=== PATIENT | male | born 1950 | race Caucasian/White ===

== ENCOUNTER 2017-02-06 09:01 | Inpatient (IN) ==
[2017-02-06 09:46] LABS: MANUAL DIFF NEEDED? NO
[2017-02-06 09:48] LABS: BASO% 0.3 % (0.0-0.8); EOS# 0.01 X1000 (0.0-0.7); EOS% 0.1 % (0.0-10.0); HEMATOCRIT 49.3 % (42.0-52.0); HEMOGLOBIN 16.9 g/dL (14.0-18.0); IMM GRAN# 0.05 X1000 (0.0-0.04); IMM GRAN% 0.3 % (0.0-0.5); LYMPH# 2.47 X1000 (1.2-3.4); LYMPH% 16.8 % (20.5-51.1); MCH 31.5 PG (27-31); MCHC 34.3 g/dL (33-37); MONO# 1.03 X1000 (0.11-0.59); MPV 9.5 FL (7.4-10.4); NEUT% 75.5 % (42.2-75.2); PLT 247 X1000 (130-400); RBC 5.36 XMIL (4.7-6.1)
[2017-02-06 10:06] LABS: AGAP 15; ALBUMIN 4.8 g/dL (3.5-5.0); ALKALINE PHOSPHATASE 85 U/L (32-122); BUN 19 mg/dL (8-22); CALCIUM 10.4 mg/dL (8.8-10.2); CHLORIDE 99 mmol/L (98-107); COSMO 277; GOT 23 U/L (10-34); GPT 25 U/L (10-44); POTASSIUM 4.1 mmol/L (3.5-5.1); SODIUM 137 mmol/L (136-145); TCO2 23 mmol/L (25-35); TOTAL BILIRUBIN 0.45 mg/dL (0.20-1.00); TOTAL PROTEIN 8.1 g/dL (6.3-8.3)
--- NOTE | 2017-02-06 10:10 | PROVIDER DOCUMENTATION ---
This chart was entered by Rita Vazquez Scribe, acting as scribe for Duran Sarkar MD. HPI-General Adult - General Chief Complaint: Nausea/Vomiting Stated Complaint: N/V X 1 YEAR Time Seen by Provider: 02/06/17 09:04 Source: patient Allergies/Adverse Reactions: Patient Allergies Allergy/AdvReac Type Severity Reaction Status Date / Time morphine Allergy ANAPHYLAXIS Verified 02/06/17 09:16 Home Medications: Home Medication List Medication Instructions Recorded Confirmed Last Taken Type ATORVAstatin [Lipitor] 40 mg PO DAILY 02/01/17 02/06/17 1 Day Ago History Amlodipine [Norvasc] 5 mg PO DAILY 02/01/17 02/06/17 02/04/17 History Baclofen 10 mg PO DIRECTED 02/01/17 02/06/17 02/04/17 History Diclofenac Potassium 50 mg PO DIRECTED 02/01/17 02/06/17 Unknown History Diclofenac Sodium [Voltaren] 1 tube TOP DIRECTED 02/01/17 02/06/17 02/03/17 History Oxycodone HCl [Oxycontin] 30 mg PO DIRECTED 02/01/17 02/06/17 02/04/17 History Clonidine HCl 0.1 mg PO TID PRN #60 tablet 02/03/17 02/06/17 02/06/17 08:00 Rx Alprazolam [Alprazolam ER] 1 mg PO DAILY 02/06/17 02/06/17 Unknown History Amlodipine [Norvasc] 5 mg PO DAILY 02/06/17 02/06/17 Unknown History Buspirone [Buspar] 15 mg PO DAILY 02/06/17 02/06/17 Unknown History Hydrocodone/Acetaminophen [[place] 1 tab PO PRN PRN 02/06/17 02/06/17 Unknown History 10-325 Tablet] - History of Present Illness -Gen Adult Nature of Presenting Problems: Pt is 68 y/o M presents to the ED via EMS with generalized weakness and muscle aches. Pt states symptoms have been present for one year. Pt has been seen in ED 4 times this mth. Pt states he did not call EMS to take him to the ED. Pt states neighbor called EMS for him. 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 Pt denies chest pain and SOB. Location of Pain/Injury: reports: generalized Pain Radiation: reports: no radiation Quality of Pain: reports: aching Severity: reports: mild Onset/Duration: reports: other (1 yr) Timing: reports: still present Context/Activities at Onset: reports: light activity Modifying Factors: improves with: nothing Associated Symptoms: reports: muscle aches, nausea, vomiting, weakness. denies : anxiety, arm pain, back/neck pain, chest pain, constipation, cough, diaphoresis, diarrhea, dizziness, EENT symptoms, fatigue, fever/chills, genitourinary problems, headaches, heartburn, joint pain, loss of appetite, malaise, sinus congestion/drainage, rash, seizure, shortness of breath, sensory/ motor loss, pain with inspiration, swelling/mass in abdomen, syncope, trouble walking Similar Symptoms Previously?: Yes Recently seen or treated by another doctor?: Yes Review of Systems - Adult - REVIEW OF SYSTEMS - ADULT Constitutional: reports: no symptoms reported Eyes: reports: no symptoms reported Ears, Nose, Mouth & Throat: reports: no symptoms reported Cardiovascular: reports: no symptoms reported Respiratory: reports: no symptoms reported Gastrointestinal: reports: nausea, vomiting. denies: abdominal pain, diarrhea Genitourinary: reports: no symptoms reported Musculoskeletal: reports: muscle aches, muscle weakness. denies: bone pain, joint pain, neck pain Integumentary: reports: no symptoms reported Neurological: reports: no symptoms reported Psychiatric: reports: no symptoms reported Endocrine: reports: no symptoms reported Hematologic/Lymphatic: reports: no symptoms reported Allergic/Immunologic: reports: no symptoms reported All Other Systems: Reviewed and Negative Past History - Adult - PAST MEDICAL HISTORY-ADULT Review of Records: reports: Nursing Assessment Review, Medications Reviewed, Social history reviewed & non-contributory. Major Childhood Illnesses: reports: denies history Cardiovascular: reports: HTN, hyperlipidemia, murmur Respiratory: reports: asthma, sleep apnea Gastrointestinal: reports: GERD Obstetrical/Gynecological: reports: denies history Genitourinary: reports: denies history Musculoskeletal: reports: denies history Neurological: reports: CVA, TIA Psychiatric: reports: anxiety Endocrine/Immune: reports: denies history Other Conditions: reports: denies history - PRIOR SURGERIES/PROCEDURES Surgical/Procedure History: reports: tonsillectomy, hernia repair - IMMUNIZATION STATUS Childhood Immunizations: See Nurse Assessment Flu Vaccine: See Nurse Assessment - FAMILY HISTORY Family History: reviewed, not pertinent - SOCIAL HISTORY Smoking: quit less than 1 year, cigarettes Substance Use: denies Living Situation: alone Physical Exam-General - PHYSICAL EXAM-ADULT Initial Vital Signs Reviewed: Yes - CONSTITUTIONAL General Appearance: alert, no apparent distress, slow to respond - EYES Eyes: PERRL/EOMI, pink conjunctivae - HEAD, EARS, NOSE, MOUTH & THROAT HENMT: normal ENT inspection - NECK Neck: normal inspection - RESPIRATORY Respiratory: chest non-tender, lungs clear, normal breath sounds - CARDIOVASCULAR Cardiovascular: normal peripheral pulses, regular rate, rhythm - GASTROINTESTINAL (ABDOMEN) Abdominal Exam: normal bowel sounds, non tender, soft - LYMPHATIC Lymphatic: no adenopathy - MUSCULOSKELETAL Back Exam: normal inspection Extremity: normal range of motion, normal inspection - SKIN Integumentary: normal color, normal turgor, warm/dry - NEUROLOGIC Neurologic: grossly normal - PSYCHIATRIC Psych/Mental Status: normal mood/affect, oriented x 3 Progress - PLAN OF CARE/RESULTS Progress/Plan/Lab Results: Vital Signs - 8 hr 02/06/17 09:09 Temperature 97.9 F Pulse Rate 74 Respiratory Rate 16 Blood Pressure 137/79 O2 Sat by Pulse Oximetry 99 Result Diagrams: 02/06/17 09:05 02/06/17 09:05 - CONSULTS/PCP/HOSPITALIST Notification #1 *Consult/PCP/Hospitalist*: Dr. Marin Time Discussed: 09:56 Reason/Comments: Dr. Sarkar consulted with Dr. Marin about Pt. Consult Disposition: other (Dr. Marin states he has not seen the Pt in person. Dr. Marin states he has rescheduled Pt twice.) #2 Consult: JERSEY Sinha for Hospitalist Time Discussed: 10:04 Reason/Comments: Dr. Sarkar consulted with Ernestine about Pt Consult Disposition: Admit Departure - Departure Date of Disposition Decision: 02/06/17 Time of Disposition Decision: 10:00 DIAGNOSIS: Nausea & vomiting, Generalized weakness, Bilateral stenosis of carotid arteries greater than 50% Disposition: ADMITTED INPATIENT 09 Certified Medical Emergency: Emergent Condition: Poor Referrals and Follow-Ups: None,PCP [Primary Care Provider] - - Critical Care Note This patient required my direct & personal management of CC.: No Attestation - Physician/ MARY ALICE Attestation The physician spent face to face time with patient:: Yes Advanced Practice Provider documentation review:: The physician spent face to face time with this patient and agrees with all MLP documentation, treatment, and medical decision making by the MLP. See provider notes for further information. This chart was documented by the indicated scribe, (Rita Vazquez Scribe) and accurately reflects the services I performed and decisions made by me, Duran Sarkar MD, as attested by the provider's signature.
[2017-02-06 10:20] LABS: UR AMPHETAMINES QUAL NONE DETECTED (NONE DETECT); UR BARBITUATES QUAL NONE DETECTED (NONE DETECT); UR BENZODIAZEPIN QUAL NONE DETECTED (NONE DETECT); UR CANNABINOIDS QUAL NONE DETECTED (NONE DETECT); UR COCAINE QUAL NONE DETECTED (NONE DETECT); UR METHADONE QUAL NONE DETECTED (NONE DETECT); UR OPIATES QUAL NONE DETECTED (NONE DETECT); UR OXYCODONE QUAL PRESUMPTIVE POSITIVE (NONE DETECT); UR PCP QUAL NONE DETECTED (NONE DETECT)
[2017-02-06] MEDS ORDERED: CATAPRES PO PRN (11:05)
[2017-02-06] MEDS ORDERED: OXYCODONE HCL 30 MG PO SCH (11:15)
[2017-02-06] MEDS ORDERED: LIORESAL PO SCH (11:15)
[2017-02-06] MEDS ORDERED: NORCO-7.5 PO PRN (12:05)
--- NOTE | 2017-02-06 14:05 | HISTORY AND PHYSICAL ---
HISTORY OF PRESENT ILLNESS: Mr. Turner was brought in by his neighbors. Apparently, he lives with his brother and his brother is in the hospital. He states that he cannot stand and cannot walk. His legs seemed to cramp up. He is losing weight. He is not able to eat. On past medical history, he says he has had multiple surgeries on his back and on his jaw. Dr. Sorto did work on reconstruction on his jaw and his teeth, but he feels like he has lost weight in the last couple months and stated that he has lost weight. He has chronic back pain. He is allergic to morphine; it makes him feel bad but he is on some pain medicines now. He was followed by Dr. Hassan, but no longer followed by any primary care. He denies fever or chills. He mainly complains of pain in his chest and not able to walk. Apparently, he had noninvasive carotid study and he has severe disease in both sides. REVIEW OF SYSTEM: Complains of difficulty swallowing and chewing, weight loss. No complaints of breathing. No trouble with chest pain or palpitations. His bowels, he says, are moving okay. No trouble with emptying his bladder by his report. FAMILY HISTORY: Noncontributory. I see where he was seen back on 11/05/2016, he was having trouble with hypersomnia symptoms and he had some sleep-related hallucinations at that time. OTHER PAST/SURGICAL MEDICAL HISTORY: Hypertension. He has had his tonsils taken out. He has had a couple hernia surgeries. Apparently, he has had hypercholesterolemia in the past, been treated for severe anxiety. PHYSICAL EXAMINATION: GENERAL: Current exam in the emergency room. Originally, he was pretty lethargic. Able to arouse him and he did give me a pretty good history. VITAL SIGNS: Temperature 97.8 degrees, pulse 74, respirations 16, blood pressure 137/79. His pupils are equal and round CVP less than 6 cm. LUNGS: Clear in all lung huynh. CARDIOVASCULAR: Regular rate without murmur or S3. ABDOMEN: Soft. SKIN: Warm and dry. NEUROLOGIC: He has no focal neurological deficits. He has general weakness. Not able to stand. His legs are weak. He also gave a history that he had some type of ulcer or ischemic ulcer, gangrenous when he was in the [employer] in his left leg. He states he has got neuropathy in both legs. LAB: White count 14,670, hematocrit 49, platelet count 247,000. Sodium 137, potassium 4.1, chloride 99, bicarbonate 23, BUN 19, creatinine 1.02. Calculated osmolality 277. Liver functions unremarkable. Urine drug screen positive for oxycodone. CURRENT MEDICATIONS: There is some question about this but it looks like it is Lipitor 40 mg a day, alprazolam ER 1 p.o. daily, Norvasc 5 mg a day, amlodipine 5 mg a day, baclofen 10 mg t.i.d., buspirone 15 mg a day, clonidine 0.1 mg p.o. t.i.d., diclofenac or Voltaren cream p.r.n., hydrocodone 10/325, one p.r.n. not sure how many he is taking a day, oxycodone 30 mg p.o. b.i.d. ASSESSMENT AND PLAN: 1. General weakness. Failure to thrive. Apparently weight loss. Trouble chewing. Not sure exactly what has been going on, but apparently, he has not been getting out of bed for at least several days. His neighbors were concerned and brought him here. I suspect it is multifactorial, but he is on a lot of medications. Not really sure what he is taking between the benzodiazepines and opioids. So, were going to try get control that and see if we can allow him to wake up and assess some with Physical Therapy. 2. He has peripheral vascular disease. Recently had noninvasive carotid which shows severe 99%, I think, on both sides. I will get vascular surgery to evaluate him if that has not been done. 3. Chronic back pain. Chronic neck pain. Aware. He does not tolerate morphine. 4. History of jaw reconstructive surgery. Difficult to chew. Cannot open his mouth very wide. 5. Protein calorie malnutrition. Weight loss. We will assesses his calorie counts. Lastly, we need to figure out if he is going to be able to go home. He has been live with his brother, his brother is at the hospital and we will see if there are other family members that will help with his point of care. cc: Monster Moe MD
[2017-02-06] MEDS ORDERED: ZOFRAN IV PRN (14:06)
[2017-02-06] MEDS ORDERED: CARAFATE LIQUID PO ONE (14:06)
[2017-02-06] MEDS: LOVENOX SUBQ SCH (15:50)
[2017-02-06] MEDS: PROTONIX IV SCH (15:50)
[2017-02-06] MEDS: ASPIRIN PO SCH (15:50)
[2017-02-06] MEDS: SODIUM CHLORIDE 0.9% INJ SCH (15:50)
[2017-02-06] MEDS: NS 1,000 ML IV SCH (15:53)
[2017-02-06] MEDS: CARAFATE LIQUID PO SCH (20:13)
[2017-02-06] MEDS: LIPITOR PO SCH (20:13)
--- NOTE | 2017-02-06 20:44 | CONSULTATION ---
DATE OF CONSULTATION: 02/06/2017 HISTORY OF PRESENT ILLNESS: This is a 68-year-old male who presents with lower extremity fatigue, paresthesias, difficulty walking resulting and falls to the emergency department. He was brought in by the neighbors. He describes cramping sensations in his legs and weight loss. He was evaluated by Dr. Gaviria last week in his office for possible carotid stenosis where an ultrasound showed critical 80-90% lesions bilaterally. He has been told he has had TIA in the past. Other than just bilateral lower extremity weakness, he does not have any focal neurologic deficits. PAST MEDICAL HISTORY: 1. Hypertension. 2. Hyperlipidemia. 3. Anxiety. 4. History of facial trauma. PAST SURGICAL HISTORY: He has had multiple inguinal hernia repairs by Dr. Aguillon in the past. He has had facial reconstruction and tonsillectomy. SOCIAL HISTORY: Extensive smoking history, quit a year ago, but he is around significant secondhand smoke. He continues to smoke cigars. He denies alcohol and drugs. REVIEW OF SYSTEMS: Ten point negative except as what was mentioned in HPI. FAMILY HISTORY: Negative for cancer. PHYSICAL EXAMINATION: Vital Signs: Temperature is 97.3 degrees, pulse 61, blood pressure 130/71, O2 saturation 99% on room air. He is 130 pounds, 6 foot 1 inch. General: He is alert, in no acute distress. Neck Examination: There is some decreased range of motion with his jaw but otherwise cranial nerves seem to be intact. No scars on his neck. Cardiovascular: Normal rate. Regular rhythm. Pulmonary: No increased work of breathing on room air. Abdomen: Soft, nontender, nondistended. I do not see any inguinal hernias. I do not feel any pulsatile abdominal masses. Integumentary: Warm, dry without jaundice. There is some ecchymoses scattered all over his upper extremities. Musculoskeletal Examination: There is significant atrophy and cachexia throughout as patient's lower extremity peripheral vascular examination is chronic. Peripheral vascular changes in his bilateral lower extremities. Pedal pulse is not easily palpable. Radial pulses 2+ bilateral and symmetric. Neurologic: He has 5/5 strength in his upper and lower extremities. I do not see any localizing symptoms. He has some subjective paresthesias in the feet. His jaw does not open well but I do not see a facial droop. Pupils are equal, round, reactive. LABS: White count 14, hematocrit 29, platelets 247,000, creatinine is 1.0, potassium 4.1, glucose 119. LFTs are normal. Troponins are undetectable. Albumin is 4.8. ES negative for illicits but positive for oxycodone. Carotid duplex examination from 02/02 shows 80-99% stenosis in bilateral carotid artery systems with bilateral anterior grade vertebral arteries. Echocardiogram from the 02 of February shows normally EF. There is severe tricuspid regurgitation. CT of the head on 02/01 showed no hemorrhage. It did show some atrophy with ethmoidal sinusitis. ASSESSMENT: This is a 68-year-old male with tobacco abuse history and severe bilateral carotid stenosis. He also has changes consistent with lower extremity peripheral vascular disease and really symptoms sound potentially more like ischemic rest pain type symptoms, if not severe claudication. I do not see any focal neurologic deficits. This is just an acute stroke at this point. RECOMMENDATIONS: He will ultimately need surgical intervention on his carotid arteries. He has severe tricuspid regurgitation which potentially could be contributing. We will most likely need to follow this up with a MECHELLE to rule out any kind of endocarditis type picture here. I will obtain a noninvasive lower extremity segmental Doppler examination to evaluate for peripheral vascular disease, possibly the etiology of his lower extremity symptoms given the significant muscle wasting and chronic ischemic changes to his bilateral lower feet. Regarding the carotid stenosis, he is on 81 aspirin. I have added a statin. He will ultimately need endarterectomy for this but I do not think this is acutely contributing to the symptoms he is having at this point. We will continue his medical workup through the weekend and medically manage his carotid stenosis. I think given his mandible mobility issues intubation could be an issue should he need this for surgery in the future. It may not be unreasonable to obtain an MRI of his head given his kind of vague neurologic symptoms of carotid stenosis to rule out any kind of subacute infarct, but I think this will be purely precautionary. I will talk about this with the Hospitalist Service. We will continue to follow along. cc: Brandon Sanchez MD
[2017-02-07] MEDS: TYLENOL PO PRN ×2 (00:06→17:14)
[2017-02-07] MEDS: SODIUM CHLORIDE 0.9% INJ SCH (02:59)
[2017-02-07] MEDS: PROTONIX IV SCH ×2 (02:59→14:54)
[2017-02-07] MEDS: NS 1,000 ML IV SCH ×2 (02:59→17:14)
[2017-02-07] MEDS: CARAFATE LIQUID PO SCH ×4 (02:59→20:06)
[2017-02-07 06:19] LABS: MANUAL DIFF NEEDED? NO
[2017-02-07 06:29] LABS: BASO% 0.6 % (0.0-0.8); HEMATOCRIT 49.7 % (42.0-52.0); HEMOGLOBIN 16.9 g/dL (14.0-18.0); LYMPH# 3.24 X1000 (1.2-3.4); LYMPH% 33.5 % (20.5-51.1); MCH 31.5 PG (27-31); MCV 92.7 FL (81-99); MONO% 10.3 % (1.7-9.3); MPV 9.5 FL (7.4-10.4); NEUT% 54.6 % (42.2-75.2); PLT 237 X1000 (130-400); RBC 5.36 XMIL (4.7-6.1)
[2017-02-07 06:47] LABS: AGAP 12; BUN 15 mg/dL (8-22); CALCIUM 9.6 mg/dL (8.8-10.2); CHLORIDE 104 mmol/L (98-107); COSMO 286; MAGNESIUM 2.3 mg/dL (1.5-2.7); SODIUM 142 mmol/L (136-145); TCO2 26 mmol/L (25-35)
[2017-02-07] MEDS ORDERED: NORVASC PO SCH (09:00)
[2017-02-07] MEDS ORDERED: XANAX XR PO SCH (09:00)
[2017-02-07] MEDS ORDERED: LIPITOR PO SCH (09:00)
[2017-02-07] MEDS ORDERED: BUSPAR PO SCH (09:00)
--- NOTE | 2017-02-07 10:46 | PROGRESS NOTE ---
DATE: 02/07/2017 SUBJECTIVE: He says he feels better, more alert this morning. No more pain. No neurologic symptoms. No fevers. No tachycardia. OBJECTIVE: Blood pressure 146/72, oxygen saturation 97% on room air. General: He is a chronically ill-appearing cachectic gentleman. Neurologically, there is no focal deficits. He is moving all extremities equally with normal strength. Significant muscle atrophy and chronic ischemic change of the lower extremities stable. White count is 9, hematocrit is 49, glucose 128. ASSESSMENT AND PLAN: A 68-year-old male with carotid stenosis bilaterally. It is critical in nature. No symptoms are consistent with a transient ischemic attack or cerebrovascular accident- type symptoms. I do worry that he has got severe peripheral vascular disease. We will check ABIs to evaluate this. In the meantime, he is on maximal medical management for his carotid stenosis pending his further medical workup. Holding his narcotics. He seems to be more alert this morning. Dr. Moe plans to repeat a CT scan of his head, I do believe, if not an MRI. We will continue to follow along. No plans for emergent endarterectomy at this time. cc: Brandon Sanchez MD
[2017-02-07] MEDS: ASPIRIN PO SCH (10:59)
--- NOTE | 2017-02-07 13:05 | PROGRESS NOTE ---
DATE: 02/07/2017 SUBJECTIVE: Mr. Turner reports he is feeling a little bit better. He is more ambulatory. He is having some mild reflux type symptoms. OBJECTIVE: Afebrile, heart rate 75, blood pressure 135/75. General: No acute distress. Cardiovascular: He sounds to be in regular rate and rhythm. He has no murmurs, no S3. He has bilateral carotid bruits. Chest: Relatively clear. No increased work of breathing. Abdomen: Soft, nontender, nondistended. DIAGNOSTIC DATA: White count is 9.7, hematocrit 49, platelet count is 237. Sodium is 142, potassium is 4, BUN is 15, creatinine 1. ASSESSMENT: Severe carotid stenosis. PLAN: Per discussion with Dr. Che, plan is to tentatively plan for a myocardial perfusion scan on Thursday. This has already been arranged for. Apparently the patient has already had the resting portion on Thursday. We will continue with that plan for the time being. The patient is on Zofran and Protonix and has sucralfate ordered as well for his reflux type symptoms. cc: Luis Sorto MD
--- NOTE | 2017-02-07 14:18 | PROGRESS NOTE ---
DATE: 02/07/2017 SUBJECTIVE: Mr. Turner does appear to be more awake and alert and more comfortable, breathing comfortably. OBJECTIVE: Vital signs: Remains afebrile, temperature 97.6 degrees, pulse 70, respirations 20, blood pressure 146/72. HEENT: Pupils are equal and round. CVP less than 6 cm. Lungs: Clear in all lung huynh. Cardiovascular: Regular rhythm and rate without murmur or S3. Abdomen: Soft. Skin: Warm and dry. : Urine output 2600 mL. LABORATORY: White count 9680, hematocrit 49, platelet count 237,000. Sodium 142, potassium 4, chloride 104, BUN 15, creatinine 1, blood sugar 128. ASSESSMENT AND PLAN: 1. Carotid stenosis bilateral. 2. Just poor appetite. Unable to walk. Generalized weakness, but particularly in his legs. He had a CT his head done on , but I think we can repeat. Note he had an echocardiogram done on , normal left ventricular cavity size, ejection fraction 65-70%. Mitral valve was normal. Tricuspid valve they stated was normal. Pulmonic valve normal, but then they stated there is severe tricuspid regurgitation. I did not see any vegetations on the valve. Carotid Doppler also done on the . Heterogeneous thrombus beginning in the right carotid bulb, extending into the external carotid artery and proximal to the mid internal carotid artery. So both sides 80-99% severe plaque. Dr. Sanchez consulted. His lab was reviewed. No sign of active cardiac ischemia. He does have severe tricuspid regurgitation, but hemodynamically appears to be stable and in sinus rhythm. We are going to see how he does with p.o. intake and get Physical Therapy for evaluation, Cardiology involved and so Thursday they are planning to do a stress test Raven. cc: Monster Moe MD
[2017-02-07] MEDS: LOVENOX SUBQ SCH (14:53)
[2017-02-07] MEDS: LIPITOR PO SCH (20:06)
[2017-02-08] MEDS: CARAFATE LIQUID PO SCH ×4 (02:04→20:56)
[2017-02-08] MEDS: PROTONIX IV SCH ×2 (02:04→13:13)
[2017-02-08] MEDS: NS 1,000 ML IV SCH ×2 (06:22→18:58)
[2017-02-08] MEDS: ASPIRIN PO SCH (09:05)
[2017-02-08] MEDS: LOVENOX SUBQ SCH (13:12)
[2017-02-08] MEDS: SODIUM CHLORIDE 0.9% INJ SCH (13:12)
--- NOTE | 2017-02-08 17:52 | PROGRESS NOTE ---
DATE: 02/08/2017 SUBJECTIVE: Mr. Tunrer is feeling better. He is able to get some food down. He has limited motion with his jaw. He has had several surgeries from his jaw years ago for jaw reconstruction, so we are continuing pureed diet and soft diet. His legs are still pretty weak and he cannot support his weight. He is not in any pain at this point. OBJECTIVE: Vital signs: Temperature 97.2 degrees, pulse 79, respirations 20, blood pressure 143/72. Lungs: Clear in all lung huynh. Cardiovascular: Regular rhythm and rate without murmur or S3. Abdomen: Soft. Skin: Warm and dry. : Urine output is 6 L. REVIEW OF LABORATORY: From 02/07, hematocrit stable 49, white count came down from 14,000 to 9000, platelet count stable. Chemistries: Unremarkable. Troponin remained less than 0.01. CPK was low at 177, 147. TSH was 26. I will check a T4 and TSH. We will check B12 and folate, too, albumin in the morning. ASSESSMENT AND PLAN: 1. Severe carotid disease bilateral. Surgery has evaluated. Dr. Sorto has evaluated. Dr. Che tentative plans for myocardial perfusion scan tomorrow. He has already had a resting portion done on Thursday. 2. Weakness in his legs. Neighbors brought him here because he just could not get out of bed and could not walk. He has had a CT done on which was unremarkable. We can repeat a CAT scan of his head. He had an echocardiogram which showed a normal ejection fraction. It did show severe tricuspid regurgitation, but clinically appears to be hemodynamically stable. 3. Anorexia, complicated by the fact that he cannot chew very well. Continue to monitor his caloric input and p.o. intake. I suspect protein calorie malnutrition. I am going to check a pre-albumin and albumin. Check a T4, TSH, cortisol level, B12 and folate in the morning. 4. Review of his orders: I do not see anything I want to change. He is on Carafate 1 g q.6, Protonix 40 mg IV q.12 hours. Getting IV fluid, normal saline at 75 mL an hour, Lipitor 40 mg a day, aspirin 81 mg a day. cc: Monster Moe MD
[2017-02-08] MEDS: TYLENOL PO PRN (20:54)
[2017-02-08] MEDS: LIPITOR PO SCH (20:56)
[2017-02-09] MEDS: CARAFATE LIQUID PO SCH ×4 (02:08→21:36)
[2017-02-09] MEDS: PROTONIX IV SCH ×2 (02:09→14:53)
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
--- NOTE | 2017-02-09 05:22 | EKG Report ---
Test Performed on : 02/07/2017 06:16:27 AM Test Reason : chest pain Blood Pressure : / mmHG Vent. Rate : 065 BPM Atrial Rate : 065 BPM P-R Int : 166 ms QRS Dur : 110 ms QT Int : 390 ms P-R-T Axes : 043 061 054 degrees QTc Int : 405 ms Normal sinus rhythm. Normal ECG When compared with ECG of 04-FEB-2017 12:31, (Unconfirmed) Criteria for Anterior infarct are no longer present Confirmed by uRstam Witt MD ([id number]) on 02/09/2017 8:50:05 AM
[2017-02-09] MEDS: NS 1,000 ML IV SCH ×2 (06:34→11:50)
[2017-02-09 07:24] LABS: AGAP 11; ALBUMIN 4.1 g/dL (3.5-5.0); ALKALINE PHOSPHATASE 77 U/L (32-122); BUN 10 mg/dL (8-22); CALCIUM 9.6 mg/dL (8.8-10.2); CHLORIDE 107 mmol/L (98-107); COSMO 283; GOT 19 U/L (10-34); GPT 26 U/L (10-44); HDL 53 mg/dL (35-55); LDL 28 mg/dL; MAGNESIUM 2.1 mg/dL (1.5-2.7); SODIUM 142 mmol/L (136-145); TCO2 24 mmol/L (25-35); TOTAL BILIRUBIN 0.65 mg/dL (0.20-1.00); TOTAL PROTEIN 7.4 g/dL (6.3-8.3); TRIGLYCERIDES 90 mg/dL (39-160); VLDL 18 mg/dL
[2017-02-09 07:25] LABS: HEMOGLOBIN A1C 5.5 % (4.8-6.0)
[2017-02-09 07:33] LABS: FREE T4 1.74 ng/dL (0.93-1.70)
[2017-02-09] MEDS ORDERED: LEXISCAN ONE (07:39)
[2017-02-09] MEDS: ASPIRIN PO SCH (11:48)
--- NOTE | 2017-02-09 14:15 | Diag Imaging Result Document ---
PROCEDURE NAME: MYOCARDIAL PERF SCAN, STR/REST - 02/06/2017 LEXISCAN CARDIOLITE STRESS TEST: Lexiscan was infused per standard protocol. There was no chest pain. Stress electrocardiogram was negative for ischemia. Following Lexiscan infusion Cardiolite was injected. 27 mCi of Cardiolite was injected for the rest phase, 27 mCi of Cardiolite was injected for the stress phase. This was a 2 day protocol. Images were acquired by standard views. There is moderate to severe grade fixed defect in the inferior wall diagnostic of infarct or scar. In addition, there is fixed defect in the inferoapical and inferoseptal wall diagnostic of infarct or scar. There is no evidence of ischemia. Left ventricular ejection fraction 70%. CONCLUSIONS: 1. No chest pain. 2. Negative Lexiscan stress electrocardiogram. 3. Myocardial perfusion images revealed no evidence of ischemia. 4. There is moderate to severe grade moderate-sized fixed defect in the inferior wall diagnostic of infarct or scar. In addition, there is also a fixed defect in the inferoseptal and inferolateral inferoapical wall suggestive of scar. Left ventricular ejection fraction 72%. cc: MD Alivia Garcia PA
[2017-02-09] MEDS: LOVENOX SUBQ SCH (14:53)
--- NOTE | 2017-02-09 18:30 | PROGRESS NOTE ---
DATE: 02/09/2017 SUBJECTIVE: He had a myocardial scan. I think he had the resting scan already done and evaluated by Dr. Che. There is no evidence of ischemia. Moderate to severe grade, moderate sized fixed defect in inferior wall diagnostic of inferior infarct or scar. There is a fixed defect in the inferoseptal and inferolateral and inferoapical wall suggestive of scar. Left ventricular ejection fraction 72%. The patient was hungry, we fed him. Eating pretty good. OBJECTIVE: General: He is awake and alert. Feels like he is getting a little stronger. Vital signs: Temperature 97.7 degrees, pulse 99, respirations 16, blood pressure 155/89. Lungs: Are clear in all lung huynh. Cardiovascular: Regular rhythm and rate without murmur or S3. Abdomen: Soft. Skin: Is warm and dry. : Good urine output. LABORATORY: Laboratory was reviewed from 02/07. Blood sugars look good. ASSESSMENT AND PLAN: 1. Severe carotid disease bilateral. Dr. Sanchez has evaluated him. 2. Weakness in his legs. General weakness. Failure to thrive. Poor p.o. intake. I think this is from general weakness. 3. Anorexia and poor p.o. intake, which is improved. 4. Myocardial perfusion scan shows a good ejection fraction. Questionable areas of scar or hypokinesis. His echocardiogram done 02/02, normal left ventricular size, estimated ejection fraction 65-70%. Aortic valve trileaflet. No aortic stenosis or regurgitation. There is trivial mitral regurgitation that is appreciated. Severe tricuspid regurgitation. cc: Monster Moe MD
[2017-02-09] MEDS: LIPITOR PO SCH (21:36)
[2017-02-09] MEDS: TYLENOL PO PRN (21:40)
[2017-02-10] MEDS: CARAFATE LIQUID PO SCH ×4 (02:06→20:34)
[2017-02-10] MEDS: PROTONIX IV SCH ×2 (02:07→13:33)
[2017-02-10] MEDS: SODIUM CHLORIDE 0.9% INJ SCH ×2 (02:07→13:33)
[2017-02-10] MEDS: NS 1,000 ML IV SCH ×2 (02:07→13:32)
[2017-02-10] MEDS: TYLENOL PO PRN ×3 (04:35→20:34)
--- NOTE | 2017-02-10 06:23 | VASCULAR LAB ---
PROCEDURE NAME: Arterial Bilateral Legs - 02/06/2017 REQUESTING PHYSICIAN: Dr. Daniel Sanchez. SINGLE POINTED OPERATOR: Derick. INDICATIONS: Leg pain with left being worse than right. FINDINGS: Segmental pressures were as follows: Right brachial 144 and left 141. Right proximal thigh 154 and left 98. Right distal thigh 151 and left 97. Right popliteal 126 and left 96. Right posterior tibial 150 and left 96. Right dorsalis pedis 127 and left 94. Right toe 108 and left 61. Right RAMON 1.04 and left 0.67. Right TBI 0.75 and left 0.42. Waveform analysis: Waveforms appear to be intact on the right side. They are blunted and diminished on the left side starting at the level of the proximal thigh. INTERPRETATION: Likely proximal vascular disease on the left side at the level of the common femoral and the superficial femoral artery, which is producing a moderate amount of peripheral vascular disease. cc: MD Brandon Tyler MD
[2017-02-10] MEDS: ASPIRIN PO SCH (09:55)
[2017-02-10] MEDS: LOVENOX SUBQ SCH (13:33)
--- NOTE | 2017-02-10 15:02 | PROGRESS NOTE ---
DATE: 02/10/2017 SUBJECTIVE: Today Mr. Turner refers to be doing okay. He does not really have any acute medical complaints. OBJECTIVE: Vital Signs: Blood pressure is 151/87, pulse of 97, respiration is 14, temperature 97.6 degrees. General: Mr. Turner is a 68-year-old, male. He is in bed, not in any distress. HEENT: Mucosa is pink and moist. Anicteric. Acyanotic. Neck: Supple. There is a carotid bruit on the left carotid. Cardiovascular: Regular rate and rhythm. I did not appreciate any murmurs. Extremities: No pedal edema. Distal pulses are reduced. SCAFFOLD SETTER: Patient is awake, alert and oriented. There is no focal neurological deficit. LABORATORY DATA: None for today. ASSESSMENT: 1. Severe bilateral carotid stenosis 80%-90% bilateral. Patient is pending carotid endarterectomy by Dr. Gaviria, hopefully before the weekend. 2. Coronary artery disease with abnormal myocardial perfusion scan. Patient has been evaluated by Cardiology and they are okay for patient to go for the carotid surgery. 3. Leg pain on exertion likely secondary to claudication. 4. Severe peripheral vascular disease, worse on the left. 5. Hypertension. cc: Venkatesh Zepeda MD
--- NOTE | 2017-02-10 15:30 | PROGRESS NOTE ---
DATE: 02/10/2017 Mr. João Turner is a 68-year-old, white male, who has known bilateral critical carotid stenoses. I have seen him in our outpatient offices because of his carotid disease. He also has some dizziness. We recommended preop cardiac evaluation which has been done since his hospitalization and we will plan with right carotid endarterectomy . I have discussed the procedure in detail with the patient and his family while at our outpatient offices. I have also discussed it again with him in his room this morning. He understands the risks of this operation being stroke, bleeding, nerve injury. He understands the need for the surgery to prevent stroke and wants to proceed. cc: Darlene Gaviria MD
[2017-02-10] MEDS: NORVASC PO SCH (15:31)
[2017-02-10] MEDS: TOPROL XL PO SCH (15:32)
[2017-02-10] MEDS: LIPITOR PO SCH (20:34)
[2017-02-11] MEDS: CARAFATE LIQUID PO SCH ×4 (02:18→21:17)
[2017-02-11] MEDS: PROTONIX IV SCH ×2 (02:18→14:55)
[2017-02-11] MEDS: TYLENOL PO PRN ×3 (05:15→18:09)
[2017-02-11] MEDS: NS 1,000 ML IV SCH (05:47)
[2017-02-11 07:15] LABS: AGAP 13; BUN 12 mg/dL (8-22); CALCIUM 10.2 mg/dL (8.8-10.2); CHLORIDE 103 mmol/L (98-107); COSMO 284; MAGNESIUM 2.3 mg/dL (1.5-2.7); POTASSIUM 4.1 mmol/L (3.5-5.1); SODIUM 142 mmol/L (136-145); TCO2 26 mmol/L (25-35)
[2017-02-11] MEDS: NORVASC PO SCH (08:32)
[2017-02-11] MEDS: ASPIRIN PO SCH (08:32)
[2017-02-11] MEDS: TOPROL XL PO SCH (08:32)
--- NOTE | 2017-02-11 12:41 | PROGRESS NOTE ---
DATE: 02/11/2017 SUBJECTIVE: Today, Mr. Turner refers to be doing okay. He is just waiting for his surgery tomorrow. Mr. Turner refers that he feels slightly dizzy, especially upon exertion. OBJECTIVE: Vital Signs: Stable. Blood pressure is 127/70, pulse 76, respirations 18, and temperature 97.9 degrees. General: Mr. Turner is a 64-year-old male. He is in bed and does not seem to be in any distress. HEENT: Mucosa is pink and moist. Anicteric. Acyanotic. Neck: Supple. There is a left carotid bruit. Cardiovascular: Regular rate and rhythm. No murmurs. Abdomen: Soft, nontender. Extremities: No pedal edema. Central Nervous System: Patient is awake, alert, and oriented x4. There is no focal neurological deficit. LABORATORY DATA: Sodium is 142, potassium is 4.1, chloride is 103, bicarbonate is 26, BUN is a 12, and creatinine 0.8. ASSESSMENT AND PLAN: 1. Severe bilateral carotid stenosis with 80% to 90% stenosis bilaterally. Patient has been scheduled for surgery tomorrow. 2. Coronary artery disease with abnormal myocardial perfusion scan. Patient has been evaluated by Cardiology. 3. Intermittent claudication. 4. Severe peripheral vascular disease, worse on the left. 5. Hypertension. We are going to continue the patient on the amlodipine, atorvastatin, aspirin, and the beta yuliya. Patient is pending bilateral endarterectomies tomorrow and will give further recommendations after the surgery. cc: Venkatesh Zepeda MD
[2017-02-11] MEDS: LOVENOX SUBQ SCH (14:55)
[2017-02-11] MEDS: SODIUM CHLORIDE 0.9% INJ SCH (14:55)
[2017-02-11] MEDS: LIPITOR PO SCH (21:17)
[2017-02-12] MEDS: TYLENOL PO PRN (00:41)
[2017-02-12] MEDS: CARAFATE LIQUID PO SCH ×4 (05:09→19:47)
[2017-02-12] MEDS: PROTONIX IV SCH ×2 (06:06→14:59)
[2017-02-12] MEDS: NS 1,000 ML IV SCH ×3 (06:13→08:14)
[2017-02-12] MEDS ORDERED: NITROGLYCERIN 50 MG/D5W 50 MG/250 ML IV.SOLN IV ONE (07:15)
[2017-02-12] MEDS ORDERED: KEFZOL 1 GM/D5W 1 GM/50 ML IVPB IV ONE (07:42)
[2017-02-12] MEDS ORDERED: EPHEDRINE ONE (07:42)
[2017-02-12] MEDS ORDERED: QUELICIN (DOSE) ONE (07:43)
[2017-02-12] MEDS ORDERED: XYLOCAINE-MPF 2% ONE (07:44)
[2017-02-12] MEDS ORDERED: ROBINUL ONE ×3 (07:44→12:06)
[2017-02-12] MEDS ORDERED: SODIUM CHLORIDE 0.9% 0 ML ONE (07:48)
[2017-02-12] MEDS ORDERED: NORCURON ONE (07:48)
[2017-02-12] MEDS ORDERED: DIPRIVAN 1% ONE (07:51)
[2017-02-12] MEDS ORDERED: FENTANYL ONE (07:54)
[2017-02-12] MEDS ORDERED: NEO-SYNEPHRINE ONE (07:58)
[2017-02-12] MEDS ORDERED: XYLOCAINE 1% ONE (08:42)
[2017-02-12] MEDS ORDERED: HEPARIN ONE (08:42)
[2017-02-12] MEDS ORDERED: NS 500 ML ONE (08:42)
[2017-02-12] MEDS ORDERED: NS 1,000 ML ONE (08:42)
[2017-02-12] MEDS ORDERED: THROMBIN-JMI ONE (08:44)
[2017-02-12] MEDS ORDERED: XYLOCAINE 1%/EPI 1:100,000 ONE (08:44)
[2017-02-12] MEDS ORDERED: KEFZOL 1 GM/D5W 1 GM/50 ML IVPB ONE (08:46)
[2017-02-12] MEDS ORDERED: NEOSTIGMINE ONE (09:46)
[2017-02-12] MEDS ORDERED: ZOFRAN ONE (10:41)
[2017-02-12] MEDS ORDERED: ZOFRAN IV PRN (12:32)
[2017-02-12] MEDS ORDERED: LR 1,000 ML ONE (13:02)
[2017-02-12] MEDS ORDERED: NEO-SYNEPHRINE 50 MG in NS 250 ML IV SCH (14:00)
[2017-02-12] MEDS: ASPIRIN PO SCH ×2 (14:08→16:00)
[2017-02-12] MEDS: NORVASC PO SCH (14:10)
[2017-02-12] MEDS: LR 1,000 ML IV SCH (14:11)
[2017-02-12] MEDS: TOPROL XL PO SCH (14:11)
--- NOTE | 2017-02-12 14:28 | OPERATIVE NOTE ---
PROCEDURE DATE: 02/12/2017 PREOPERATIVE DIAGNOSIS: Critical bilateral carotid arterial stenosis. POSTOPERATIVE DIAGNOSIS: Critical bilateral carotid arterial stenosis. PRINCIPAL PROCEDURE: Right carotid endarterectomy with patch angioplasty. SURGEON: Darlene Gaviria MD. INDUSTRIAL MACHINERY MECHANIC: Dr. Daniel Sanchez and Dr. Angela Vu. ANESTHESIA: General. In addition, local anesthetic. ESTIMATED BLOOD LOSS: 150 mL. DRAINS: TLS drain right neck. INDICATIONS: Mr. João Turner Sr is a 68-year-old white male who has peripheral vascular disease and known bilateral critical carotid stenoses. He was evaluated after dizziness with noninvasive carotid studies which documented bilateral carotid disease. He has been admitted for cardiac evaluation which has been completed, and cardiology suggested we proceed with carotid endarterectomy. We chose to proceed with the right side first. FINDINGS: He had inflammatory changes along the distal common internal and external carotid arteries. These were small vessels. He had extensive plaque in the distal common carotid bulb and into the internal carotid artery. We felt that it feathered nicely and we performed a patch angioplasty. We did use a shunt during the procedure. DESCRIPTION OF PROCEDURE: The patient was already hospitalized. He was brought to the operating room, placed supine, received general anesthesia, and I was present for positioning. We extended his neck and turned to the left. We put him in reverse Trendelenburg and his right neck was prepped and draped within the sterile field. We used an Ioban on the skin. We used local anesthetic at our incision sites. I made an oblique incision along the anterior aspect of the sternocleidomastoid muscle on the right using a 15 blade scalpel. This incision was carried down through the skin and subcutaneous tissue to the platysma muscle which we divided using the cautery and then we used forceps and scissors to mobilize the soft tissue right neck. We used a Gelpi for self-retaining retraction. We identified the common carotid artery distally. We isolated it with a vessel loop and we dissected the distal common carotid artery from proximal to distal and then to the branches, the internal and external carotid arteries. These branches were isolated with small red vessel loops. We divided the facial vein between hemostats and 3-0 stick ties. We made sure we had plenty of length of the internal carotid artery past the palpable plaque visualized. We identified the hypoglossal nerve and the vagus nerves and they were preserved throughout the case. The patient was given 5000 units of IV heparin. We used the vessel loops to stop flow through these vessels. We used 11 blade scalpel and then Pappas scissors to perform our arteriotomy which began in the distal common carotid artery through the Bayron into the internal carotid artery past the plaque. I placed a shunt initially proximally in the common carotid artery and then into the internal carotid artery. We controlled the shunt with the vessel loop in the common and a shunt clamp on the internal carotid artery. We then used a Beverly elevator to remove the plaque from the common carotid artery, the bulb, and in the internal carotid artery. It feathered distally nicely. We thoroughly irrigated our arteriotomy site and any loose debris or plaque was removed using fine forceps. I used a 0.8 cm in width carotid patch. Double-arm 6-0 Prolene stitch, and we performed a patch angioplasty to our arteriotomy site. Before completing closure of the arteriotomy, I removed the shunt initially from the internal carotid artery and then through the common carotid artery. We flushed the common carotid artery and internal and external carotid arteries through our arteriotomy site. We completed the arteriotomy site with a 6-0 Prolene stitch and then re-established flow initially through the external and then into the internal carotid artery. I had to place 2 single-arm stitches along our closure to control bleeding but, after the stitches were placed, we felt that the area of operation was dry. We had a good palpable pulse distally in the internal carotid artery. We thoroughly irrigated the wound and we closed in layers. Closed the platysma muscle with a running 2-0 Vicryl stitch and Rajan More RN closed the skin with 4-0 Monocryl subcuticular stitch. Dressings were applied. It must be noted that I placed a TLS drain in the right neck before closure. It was brought out through a separate stab incision in the right neck. It was secured to the skin with a 3-0 silk stitch. He tolerated the procedure well. He woke up moving all extremities, and he will go to the recovery room and then be hospitalized in the ICU. There was no family present to report to after surgery. cc: Darlene Gaviria MD
--- NOTE | 2017-02-12 14:55 | PROGRESS NOTE ---
DATE: 02/12/2017 SUBJECTIVE: This morning, Mr. Turner referred to be doing fine. He was just waiting for his surgery. OBJECTIVE: Vital Signs: Stable. Blood pressure was 126/90, pulse was 88, respiration was 18, temperature of 98.1 degrees. General: Mr. Turner is a 68-year-old male. He was in bed, was not in any distress. HEENT: Mucosa is pink and moist. Anicteric. Acyanotic. Neck: Supple. There is a left carotid bruit. Cardiovascular: Regular rate and rhythm. Abdomen: Soft, nontender. Extremities: No pedal edema. The distal pulses were remarkably reduced as well. DIAL PAINTER: Patient is awake, alert. There is no focal neurological deficit. LABORATORY DATA: None for today. ASSESSMENT: 1. Severe bilateral carotid stenosis with 80%-90% stenosis bilaterally. Patient is scheduled for surgery today. I spoke with Dr. Gaviria after surgery and he said everything went right. He did the left side, and he plans to do the right side as early as within a week. 2. Coronary artery disease noted. 3. Intermittent claudication. 4. Severe peripheral vascular disease, worse on the left than the right. 5. Hypertension. So in general, I think Mr. Turner is relatively stable. We are going to continue with his aspirin, statin, blood pressure control. We will re-evaluate him later on today after the surgery. cc: Venkatesh Zepeda MD
[2017-02-12] MEDS: SODIUM CHLORIDE 0.9% INJ SCH (14:59)
[2017-02-12] MEDS: LOVENOX SUBQ SCH (16:00)
[2017-02-12 16:09] LABS: URINE CULTURE NEEDED? NO; URINE MICRO REVIEW NEEDED? NO; URINE SOURCE CATH
[2017-02-12 16:19] LABS: BILIRUBIN URINE NEGATIVE (NEGATIVE); BLOOD URINE NEGATIVE (NEGATIVE); COLOR YELLOW; GLUCOSE URINE NEGATIVE (NEGATIVE); LEUKOCYTES URINE NEGATIVE (NEGATIVE); NITRITE URINE NEGATIVE (NEGATIVE); PH URINE 7.5; PROTEIN URINE NEGATIVE (NEGATIVE); SP GRAVITY URINE 1.007; TURBIDITY URINE CLEAR (CLEAR); UR EPITHELIAL CELLS <10 /HPF (<10); URINE BACTERIA NEGATIVE /HPF; URINE RBC <10 /HPF (<10); URINE WBC <10 /HPF (<10); UROBILINOGEN URINE NORMAL (NORMAL)
[2017-02-12] MEDS: NORCO-5 PO PRN (19:58)
[2017-02-12] MEDS: LIPITOR PO SCH (20:00)
[2017-02-13] MEDS: NORCO-5 PO PRN ×6 (00:45→22:33)
[2017-02-13] MEDS: PROTONIX IV SCH ×2 (02:10→13:26)
[2017-02-13] MEDS: CARAFATE LIQUID PO SCH ×3 (02:10→13:26)
[2017-02-13] MEDS: LR 1,000 ML IV SCH ×2 (02:41→15:21)
[2017-02-13] MEDS: NORVASC PO SCH (08:11)
[2017-02-13] MEDS: TOPROL XL PO SCH (08:11)
[2017-02-13] MEDS: ASPIRIN PO SCH (08:11)
[2017-02-13] MEDS ORDERED: ASPIRIN PO SCH (09:00)
[2017-02-13] MEDS: SODIUM CHLORIDE 0.9% INJ SCH (13:26)
[2017-02-13] MEDS: LOVENOX SUBQ SCH (13:26)
--- NOTE | 2017-02-13 13:48 | PROGRESS NOTE ---
DATE: 02/13/2017 SUBJECTIVE: Today Mr. Turner refers to be doing fine. He was actually sitting up in a chair watching television, he actually did not complain of any issues. OBJECTIVE: Vital signs: Blood pressure is 145/68, pulse is 50, respirations 17, temperature 98.9 degrees. General: Mr. Turner 68-year-old male he was in bed, did not seem to be in any distress. HEENT: Mucosa is pink and moist. Anicteric. Acyanotic. Neck: Supple. The right side of the neck has the recent surgical dressings. There is also a drainage system in place. The left side continued to have the carotid bruit. Distal pulses are remarkably reduced. SAND WHEELER: Patient is awake and alert and oriented. ASSESSMENT: 1. Severe bilateral carotid stenosis with 80-90% bilateral stenosis. Patient is status post right endarterectomy with patch angioplasty. The patient seems to be doing remarkably fine. Will be waiting on the on the surgeon to evaluate him today so that we can move him from the ICU to regular floor. 2. Coronary artery disease. 3. Intermittent claudication. 4. Severe peripheral vascular disease. 5. Hypertension. 6. The patient is going to continue with the amlodipine, aspirin, arthroplastic and Lovenox for DVT prophylaxis. We are going to go ahead and discontinue the Saenz catheter and once patient is evaluated by surgery we will transfer him to the regular floor. cc: Venkatesh Zepeda MD
[2017-02-13] MEDS: LIPITOR PO SCH (22:32)
[2017-02-14] MEDS: NORCO-5 PO PRN ×4 (04:37→21:00)
[2017-02-14] MEDS: ASPIRIN PO SCH (09:06)
[2017-02-14] MEDS: NORVASC PO SCH (09:06)
[2017-02-14] MEDS: TOPROL XL PO SCH (09:06)
--- NOTE | 2017-02-14 14:10 | PROGRESS NOTE ---
DATE: 02/14/2017 SUBJECTIVE: The patient has no complaints. He is ambulating and eating and otherwise doing fairly well. OBJECTIVE: Vital Signs: He is afebrile. Vital signs are stable. General: He is alert and oriented x4. No acute distress. Neck: The right carotid endarterectomy incision is healing well. There is some slight old blood on the bandage and slight swelling, but no significant hematoma. Neuro: His cranial nerves 2-12 are grossly intact. He moves all extremities equally and well. ASSESSMENT/PLAN: A 68-year-old male, status post right carotid endarterectomy. He is making a recovery, and I think he is planning to go to rehab on Thursday. cc: Dickson Cosby MD
--- NOTE | 2017-02-14 14:42 | PROGRESS NOTE ---
DATE: 02/14/2017 SUBJECTIVE: Today Mr. Turner referred to be doing relatively fine. The drain from the surgical site was removed yesterday. OBJECTIVE: Vital signs: Blood pressure is 102/41, pulse of 54, respiration is 18, temperature is 97.7 degrees. General: Mr. Turner is a 68-year-old male. He is in bed, not in any distress. HEENT: Mucosa is pink and moist. Anicteric. Acyanotic. Neck: Supple. There is a dressing over the right carotid surgery. Chest: Clear. Cardiovascular: Regular rate and rhythm. There are no murmurs, no rubs, no gallops. Abdomen: Soft. Extremities: No pedal edema. Distal pulses are reduced. COUNTY DIRECTOR WELFARE: Patient is awake, alert and oriented x4. LABORATORY DATA: None for today. ASSESSMENT: 1. Severe bilateral carotid stenosis with 80%-90% occlusion. The patient is status post right endarterectomy with patch angioplasty. Today is day 2. He seems to be doing remarkably fine. 2. History of coronary artery disease. 3. Severe peripheral vascular disease with intermittent claudication. 4. Hypertension. Stable. So in general, I think Mr. Turner is relatively stable. We are still pending a placement for him at [facility] for adequate rehabilitation. If there is no bed at [facility] the patient prefers to go home. There is already an arrangement for him to see Dr. Gaviria within a week so that they can start planning for the left side endarterectomy as well. cc: Venkatesh Zepeda MD
[2017-02-14] MEDS: LIPITOR PO SCH (20:55)
[2017-02-15] MEDS: NORCO-5 PO PRN ×4 (02:02→20:46)
[2017-02-15] MEDS ORDERED: PRILOSEC PO ONE (06:51)
[2017-02-15] MEDS: ASPIRIN PO SCH (09:57)
[2017-02-15] MEDS: TOPROL XL PO SCH (09:57)
[2017-02-15] MEDS: NORVASC PO SCH (09:58)
--- NOTE | 2017-02-15 09:58 | PROGRESS NOTE ---
DATE: 02/15/2017 SUBJECTIVE: The patient has no complaints except his left IV in his arm is hurting him and he would like it out. OBJECTIVE: Vital signs: He is afebrile. Vital signs are stable. General: Alert and oriented x4. No acute distress. Neurologic: He moves all extremities equally and well. His cranial nerves appear to be grossly intact. Neck: Supple. No hematoma. Right neck incision is intact without erythema or drainage. ASSESSMENT AND PLAN: This is a 68-year-old male status post right carotid endarterectomy. He appears to be recovering uneventfully. We are awaiting rehab placement. Will discontinue his IV today. cc: Dickson Cosby MD
[2017-02-15] MEDS: PEPCID PO SCH ×2 (11:56→20:54)
--- NOTE | 2017-02-15 12:35 | PROGRESS NOTE ---
DATE: 02/15/2017 SUBJECTIVE: Today Mr. Turner refers to be doing fine. Does not have any acute medical problem. Has already been evaluated by surgery. The arterial line has been discontinued. He, however, refers to continue to feel a little weak. OBJECTIVE: Vital signs: Blood pressure is 152/71, pulse 64, respirations 18, temperature 97.5 degrees. General: Mr. Turner is a 68-year-old male. He is in bed. Not seemingly distress. HEENT: Mucosa is pink and moist. Anicteric. Acyanotic. Neck: Supple. There is a dressing over the right carotid from the surgery. Left carotid has some bruit. Cardiovascular: Regular rate and rhythm. There are no murmurs, no rubs, no gallops. Abdomen: Soft, nontender. Extremities: No pedal edema. 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 There is no focal neurological deficit. LABORATORY DATA: None. ASSESSMENT: 1. Severe bilateral carotid stenosis with 80 to 90% occlusion. Patient is status post right endarterectomy with patch angioplasty. Today is day 3 postop and he is doing fine. 2. History of coronary artery disease. 3. Severe peripheral vascular disease with intermittent claudication. 4. Hypertension, stable. 5. Generalized weakness and deconditioning. PLAN: So in general I think Mr. Turner is doing fine. We are just pending rehab placement for him to go and continue with his physical yazidi. There is an arrangement for him to follow up with Dr. Gaviria for intervention on the left carotid. cc: Venkatesh Zepeda MD
[2017-02-15] MEDS: CARAFATE PO SCH ×2 (13:55→18:19)
[2017-02-15] MEDS: LIPITOR PO SCH (20:53)
[2017-02-16] MEDS: NORCO-5 PO PRN ×3 (01:01→10:53)
[2017-02-16] MEDS: CARAFATE PO SCH ×3 (04:25→12:48)
[2017-02-16] MEDS: NORVASC PO SCH (09:22)
[2017-02-16] MEDS: ASPIRIN PO SCH (09:22)
[2017-02-16] MEDS: TOPROL XL PO SCH (09:23)
[2017-02-16] MEDS: PEPCID PO SCH (09:23)
[2017-02-16 12:18] VITALS: BP 159/74
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
== END 2017-02-16 13:36 | disposition home health service (06) ==
LOC: EDBD → SUPCPDRO → ED 09:01 → SUATTDRO 12:38 → 3N 12:38 → ICU 02-12 12:42 → 3N 02-13 18:24
PROVIDERS: ATTEND Internal Medicine

== ENCOUNTER 2017-03-03 06:11 | Inpatient (IN) ==
[2017-02-26 09:17] LABS: MANUAL DIFF NEEDED? NO
[2017-02-26 09:55] LABS: BASO% 0.4 % (0.0-0.8); EOS# 0.64 X1000 (0.0-0.7); EOS% 3.8 % (0.0-10.0); HEMOGLOBIN 16.4 g/dL (14.0-18.0); IMM GRAN# 0.03 X1000 (0.0-0.04); IMM GRAN% 0.2 % (0.0-0.5); LYMPH# 4.82 X1000 (1.2-3.4); LYMPH% 28.4 % (20.5-51.1); MCH 31.4 PG (27-31); MCHC 34.2 g/dL (33-37); MCV 91.8 FL (81-99); MONO# 1.73 X1000 (0.11-0.59); MONO% 10.2 % (1.7-9.3); MPV 9.1 FL (7.4-10.4); PLT 359 X1000 (130-400); RBC 5.23 XMIL (4.7-6.1)
[2017-02-26 10:33] LABS: AGAP 9; BUN 21 mg/dL (8-22); CALCIUM 10.9 mg/dL (8.8-10.2); CHLORIDE 102 mmol/L (98-107); COSMO 286; POTASSIUM 4.9 mmol/L (3.5-5.1); SODIUM 141 mmol/L (136-145); TCO2 30 mmol/L (25-35)
[~2017-03-03 06:11] MED LIST: KEFZOL 1 GM/D5W 1 GM/50 ML IVPB ONE; LR 1,000 ML ONE; NITROGLYCERIN 50 MG/D5W 50 MG/250 ML IV.SOLN ONE; PEPCID ONE; REGLAN ONE
[2017-03-03] MEDS ORDERED: FENTANYL ONE (06:24)
[2017-03-03] MEDS ORDERED: QUELICIN (DOSE) ONE (06:24)
[2017-03-03] MEDS ORDERED: DIPRIVAN 1% ONE (06:24)
[2017-03-03] MEDS ORDERED: HEPARIN ONE (06:30)
[2017-03-03] MEDS ORDERED: NS 500 ML ONE (06:30)
[2017-03-03] MEDS ORDERED: XYLOCAINE 1%/EPI 1:100,000 ONE (06:31)
[2017-03-03] MEDS ORDERED: XYLOCAINE 1% ONE (06:31)
[2017-03-03] MEDS ORDERED: NS 1,000 ML ONE (06:31)
[2017-03-03] MEDS ORDERED: KEFZOL 1 GM/D5W 1 GM/50 ML IVPB ONE (06:37)
[2017-03-03] MEDS ORDERED: LR 1,000 ML ONE ×2 (06:37→09:51)
[2017-03-03] MEDS ORDERED: VERSED ONE (06:39)
[2017-03-03] MEDS ORDERED: THROMBIN-JMI ONE (06:54)
[2017-03-03] MEDS ORDERED: HEPARIN (DOSE) ONE (07:53)
[2017-03-03] MEDS ORDERED: XYLOCAINE-MPF 2% ONE (07:53)
[2017-03-03] MEDS ORDERED: SODIUM CHLORIDE 0.9% 20 ML ONE (07:54)
[2017-03-03] MEDS ORDERED: ZOFRAN ONE ×2 (07:54→10:09)
[2017-03-03] MEDS ORDERED: DECADRON ONE ×2 (07:54→10:09)
[2017-03-03] MEDS ORDERED: ROBINUL ONE (07:54)
[2017-03-03] MEDS ORDERED: EPHEDRINE ONE (07:54)
[2017-03-03] MEDS ORDERED: NEO-SYNEPHRINE ONE (07:54)
[2017-03-03] MEDS ORDERED: XYLOCAINE 2% JELLY ONE (07:55)
[2017-03-03] MEDS ORDERED: ATROPINE ONE (07:55)
[2017-03-03] MEDS ORDERED: NEOSTIGMINE ONE (07:55)
--- NOTE | 2017-03-03 09:24 | OPERATIVE NOTE ---
PROCEDURE DATE: 03/03/2017 PREOPERATIVE DIAGNOSIS: Left carotid stenosis. POSTOPERATIVE DIAGNOSIS: Left carotid stenosis. PRINCIPAL PROCEDURE: Left carotid endarterectomy with patch angioplasty. SURGEON: Darlene Gaviria M.D. HARDBOARD SUPERVISOR: Dr. Angela Vu, and Rajan More RN. ANESTHESIA: General in addition to local anesthetic. ESTIMATED BLOOD LOSS: 100 mL. DRAINS: TLS drain, left neck. INDICATIONS: Mr. João Turner, Sr., is a 68-year-old white male, who several weeks ago underwent a right carotid endarterectomy with patch angioplasty by myself because of critical stenosis on the right side. He also had left carotid stenosis, which was hemodynamically significant. He got over his right carotid endarterectomy well, and a left carotid endarterectomy was recommended. FINDINGS: He had plaque at the carotid bulb. It feathered nicely distally into the internal carotid artery. His vessels were small, and we chose to do a patch angioplasty. DESCRIPTION OF PROCEDURE: Dr. Vu was present throughout the case. His presence was necessary to help with exposure of the common carotid artery and its branches, the external and internal carotid arteries. He also helped control flow through the area of our arteriotomy, and exposed for removal of the plaque. He also followed the suture when closing the arteriotomy site using patch angioplasty. The patient presented on the day of surgery. He went to the operating room, received general anesthesia, and was intubated. His left neck was prepped and draped within a sterile field. We used an [place] on the skin. He received Ancef prophylactically. I used local anesthetic at our incision site. We made an oblique incision along the anterior border of the left sternocleidomastoid muscle with a 15 blade scalpel. It was carried down through the subcutaneous tissue and the platysma muscle using cautery. We then mobilized the left sternocleidomastoid muscle laterally with the internal jugular vein to expose the common carotid artery and then its branches, the external and internal carotid arteries. We isolated the common carotid artery with a large vessel loop. We identified the superior thyroid artery and the external carotid artery, and isolated both of these and controlled them with one large vessel loop. We dissected the internal carotid artery past the palpable plaque, which mostly involved the carotid bulb. We used Gelpi retractors, and also a handheld Affinity Edge Kaka. The patient was given 6000 units of IV heparin. We waited 3 minutes, and then we stopped flow through the common external and internal carotid artery using our vessel loops. I made an arteriotomy, beginning in the distal common carotid artery laterally, and I extended this arteriotomy through the plaque, into the internal carotid artery. I used a shunt, placed it proximally and then distally into the internal carotid artery. We used a shunt clamp to control it within the internal carotid artery, and the vessel loop to control it in the common carotid artery. I then used a [place] elevator to remove the plaque proximal to distal. It feathered nicely distally. We irrigated the arteriotomy site with heparin and saline. Any loose debris was removed with fine forceps. I then chose to use a 0.8 cm wide patch, and closed the arteriotomy site by sewing this patch in place using a double-arm 6-0 Prolene stitch. Before completing the closure, we removed the shunt, initially from the internal carotid artery, and then the common carotid artery. We flushed these vessels through our arteriotomy site. We completed the closure of the arteriotomy site, and re-established flow through the external carotid artery and then the internal carotid artery. I had to use one single- arm stitch to control some bleeding from our arteriotomy site. I chose to place a TLS drain in the left neck. It was brought out through a separate stab incision inferior to our incision. We secured it to the skin with a 3-0 silk stitch. I thoroughly irrigated the wound. It was removed with suction. There was no evidence of ongoing bleeding. I closed the platysma muscle with a running 2-0 Vicryl stitch, and then the skin was closed by Rajan More RN, using a 4-0 Monocryl subcuticular stitch. Dressings were applied. Plans are for him to go the recovery room and then be hospitalized in our ICU. There was no family present to talk to after the procedure. cc: Darlene Gaviria MD
[2017-03-03] MEDS ORDERED: ZOFRAN IV PRN (11:15)
[2017-03-03] MEDS ORDERED: CATAPRES PO PRN (11:57)
[2017-03-03] MEDS: LR 1,000 ML IV SCH (14:13)
[2017-03-03] MEDS ORDERED: NORCO-5 PO PRN (17:49)
[2017-03-03] MEDS: LIPITOR PO SCH (21:31)
[2017-03-04] MEDS: LR 1,000 ML IV SCH ×2 (01:51→05:43)
--- NOTE | 2017-03-04 08:07 | PROGRESS NOTE ---
DATE: 03/04/2017 SUBJECTIVE: Mr. João Turner is now postop day 1 from a left carotid endarterectomy with patch angioplasty. He spent the night in the ICU. He has some swelling of his neck, but it is minimal. He has had satisfactory drain output from his TLS drain. Hemodynamically, he has been satisfactory, and he has no evidence of neurologic deficit. Plans are to remove his art line, remove the TLS drain from left neck, and we will send him to the floor. cc: Darlene Gaviria MD
[2017-03-04] MEDS: ASPIRIN PO SCH (08:08)
[2017-03-04] MEDS: PEPCID PO SCH (08:08)
[2017-03-04] MEDS: TOPROL XL PO SCH (08:08)
[2017-03-04] MEDS: NORVASC PO SCH (08:08)
[2017-03-04] MEDS: LIPITOR PO SCH (20:02)
[2017-03-05] MEDS: NORVASC PO SCH (07:59)
[2017-03-05] MEDS: PEPCID PO SCH (07:59)
[2017-03-05] MEDS: TOPROL XL PO SCH (07:59)
[2017-03-05] MEDS: ASPIRIN PO SCH (07:59)
[2017-03-05 12:22] VITALS: BP 144/57
== END 2017-03-05 16:01 | disposition home health service (06) ==
LOC: EDBD → SURHOLD 06:11 → ICU 08:38 → 4N 03-04 17:50
PROVIDERS: ADMIT Surgery; ATTEND Surgery

== ENCOUNTER 2018-11-25 18:42 | Inpatient (IN) ==
[2018-11-25] MEDS ORDERED: NEO SYNEPHRINE NAS ONE (19:38)
[2018-11-25 21:18] LABS: BASO# 0.04 X1000 (0.0-0.2); BASO% 0.2 % (0.0-0.8); EOS% 1.1 % (0.0-10.0); HEMATOCRIT 46.7 % (42.0-52.0); HEMOGLOBIN 16.1 g/dL (14.0-18.0); IMM GRAN# 0.05 X1000 (0.0-0.04); IMM GRAN% 0.3 % (0.0-0.5); LYMPH# 2.82 X1000 (1.2-3.4); LYMPH% 16.2 % (20.5-51.1); MCH 32.1 PG (27-31); MCHC 34.5 g/dL (33-37); MCV 93.2 FL (81-99); MONO# 1.45 X1000 (0.11-0.59); MONO% 8.3 % (1.7-9.3); MPV 8.9 FL (7.4-10.4); NEUT# 12.86 X1000 (1.4-6.5); NEUT% 73.9 % (42.2-75.2); PLT 242 X1000 (130-400); RBC 5.01 XMIL (4.7-6.1); RDW 12.5 % (11.5-14.5); WBC 17.42 X1000 (4.8-10.8)
[2018-11-25 21:39] LABS: INR 0.85; PROTIME 12.4 Seconds (11.0-16.0)
[2018-11-25 21:43] LABS: AGAP 15; ALB/GLOB RATIO 1.6; ALKALINE PHOSPHATASE 101 U/L (32-122); BUN 23 mg/dL (8-22); CALCIUM 9.8 mg/dL (8.8-10.2); CHLORIDE 104 mmol/L (98-107); COSMO 291; CREATININE 0.9 mg/dL (0.7-1.2); ESTIMATED GFR > 60; GLUCOSE 148 mg/dL (70-104); GOT 39 U/L (10-34); GPT 48 U/L (10-44); POTASSIUM 4.2 mmol/L (3.5-5.1); SODIUM 143 mmol/L (136-145); TCO2 24 mmol/L (25-35); TOTAL BILIRUBIN 0.31 mg/dL (0.20-1.00); TOTAL PROTEIN 8.1 g/dL (6.3-8.3)
[2018-11-25] MEDS ORDERED: NS 1,000 ML IV ONE (22:16)
[2018-11-25] MEDS ORDERED: ZOFRAN IV PRN (23:35)
[2018-11-25] MEDS ORDERED: NORCO-10 PO PRN (23:35)
[2018-11-25] MEDS ORDERED: TYLENOL PO PRN (23:35)
[2018-11-26] MEDS ORDERED: NORCO-10 PO PRN
[2018-11-26] MEDS ORDERED: AUGMENTIN PO ONE (00:01)
--- NOTE | 2018-11-26 00:14 | PROVIDER DOCUMENTATION ---
This chart was entered by Ramona Villalta Scribe, acting as scribe for Madeline You MD. HPI-EENT General - General Chief Complaint: Nose Bleed Stated Complaint: NOSE BLEED/HERE YESTERDAY FOR SAME Time Seen by Provider: 11/25/18 19:10 Source: patient Allergies/Adverse Reactions: Patient Allergies Allergy/AdvReac Type Severity Reaction Status Date / Time morphine Allergy Severe ANAPHYLAXIS Unverified 02/26/17 08:41 acetaminophen [From Tylenol] Allergy Unknown Unverified 03/04/17 17:17 - History of Present Illness-EENT General Nature of Presenting Problem: pt is a 70 yr old male presenting with 1 week hx of intermittent nose bleeds, pt reports bleeding began after he was put on toprol and 81mg ASA to prepare for cardiac stent placement, pt reports stent placed yesterday. pt was seen for nose bleeding yesterday, was able to get it stopped and sent home, pt reports he began taking plavix this AM as directed, nose began bleeding approx 1700 today, unable to get it controlled using pressure, packing and afrin. pt denies any ot her complaints EENT Location: reports: nose (right nare) Quality of Pain: reports: none Severity: reports: moderate Onset/Duration: reports: 1 week ago Timing: reports: intermittent Prearrival Treatment: Initiated prescription meds (afrin), Initiated squeezing n ostrils, Initiated nasal packing Associated Symptoms: reports: denies symptoms Locality of [place]: Home Similar Symptoms Previously?: Yes Recently seen or treated by another doctor?: Yes (seen ER and cardiology yesterday) - Nose Nose Problem Symptoms: nosebleed Review of Systems - Adult - REVIEW OF SYSTEMS - ADULT Constitutional: denies: chills, fever Eyes: denies: blurred vision, double vision Ears, Nose, Mouth & Throat: reports: epistaxis. denies: ear pain, throat pain Cardiovascular: denies: chest pain, syncope Respiratory: denies: cough, wheezing Gastrointestinal: denies: nausea, vomiting Genitourinary: reports: no symptoms reported Musculoskeletal: reports: no symptoms reported Integumentary: reports: no symptoms reported Neurological: denies: dizziness/vertigo, headache/migraines Psychiatric: reports: no symptoms reported Endocrine: reports: no symptoms reported Hematologic/Lymphatic: reports: no symptoms reported Allergic/Immunologic: reports: no symptoms reported All Other Systems: Reviewed and Negative Past History - Adult - PAST MEDICAL HISTORY-ADULT Review of Records: reports: Old Records Reviewed, Nursing Assessment Review, Medications Reviewed, Social history reviewed & non-contributory. Major Childhood Illnesses: reports: denies history Cardiovascular: reports: CAD, HTN, hyperlipidemia, murmur Respiratory: reports: asthma, sleep apnea Gastrointestinal: reports: GERD Obstetrical/Gynecological: reports: denies history Genitourinary: reports: denies history Musculoskeletal: reports: denies history Neurological: reports: CVA, Seizures/Epilepsy, TIA Psychiatric: reports: anxiety Endocrine/Immune: reports: denies history Other Conditions: reports: denies history - PRIOR SURGERIES/PROCEDURES Surgical/Procedure History: reports: cardiac stent, tonsillectomy, hernia repair - IMMUNIZATION STATUS Childhood Immunizations: See Nurse Assessment Flu Vaccine: See Nurse Assessment - FAMILY HISTORY Family History: reviewed, not pertinent - SOCIAL HISTORY Smoking: quit greater than 1 year Living Situation: alone Physical Exam- EENT - Physical Exam EENT Initial Vital Signs Reviewed: Yes General Appearance: alert, mild distress Eye Exam: bilateral eye: normal inspection, PERRL Nasal Exam: active bleeding (patient holding pressure on nose) Throat Exam: other (blood in mouth (likely form the nose)) Neck: non-tender, full range of motion, supple, normal inspection Respiratory: chest non-tender, lungs clear, normal breath sounds Cardiovascular: normal peripheral pulses, regular rate, rhythm, no edema Abdominal Exam: normal bowel sounds, non tender, soft Extremity: normal range of motion, non-tender, normal gait Integumentary: normal color, normal turgor, warm/dry Neurologic: grossly normal, no motor/sensory deficits Psych/Mental Status: normal mood/affect Progress - PLAN OF CARE/RESULTS Progress/Plan/Lab Results: Vital Signs - 8 hr 11/25/18 18:55 Temperature 97.8 F Pulse Rate 80 Respiratory Rate 18 Blood Pressure 110/66 O2 Sat by Pulse Oximetry 96 Laboratory Results - last 24 hr 11/25/18 11/25/18 11/25/18 21:07 21:07 21:07 WBC 17.42 H RBC 5.01 Hgb 16.1 Hct 46.7 MCV 93.2 MCH 32.1 H MCHC 34.5 RDW Std Deviation 12.5 Plt Count 242 MPV 8.9 Immature Gran % (Auto) 0.3 Neut % (Auto) 73.9 Lymph % (Auto) 16.2 L [place] % (Auto) 8.3 Eos % (Auto) 1.1 Baso % (Auto) 0.2 Immature Gran # (Auto) 0.05 H Neut # (Auto) 12.86 H Lymph # (Auto) 2.82 Atkinson # (Auto) 1.45 H Eos # (Auto) 0.20 Baso # (Auto) 0.04 PT INR PTT (Actin FS) 26.6 Sodium 143 Potassium 4.2 Chloride 104 Carbon Dioxide 24 L Anion Gap 15 BUN 23 H Creatinine 0.9 Estimated GFR/1.73 m2 > 60 BUN/Creatinine Ratio 26 Glucose 148 H Calculated Osmolality 291 Calcium 9.8 Total Bilirubin 0.31 AST 39 H ALT 48 H Alkaline Phosphatase 101 Troponin T Total Protein 8.1 Albumin 5.0 Globulin 3.1 Albumin/Globulin Ratio 1.6 11/25/18 11/25/18 21:07 21:07 WBC RBC Hgb Hct MCV MCH MCHC RDW Std Deviation Plt Count MPV Immature Gran % (Auto) Neut % (Auto) Lymph % (Auto) [place] % (Auto) Eos % (Auto) Baso % (Auto) Immature Gran # (Auto) Neut # (Auto) Lymph # (Auto) Atkinson # (Auto) Eos # (Auto) Baso # (Auto) PT 12.4 INR 0.85 PTT (Actin FS) Sodium Potassium Chloride Carbon Dioxide Anion Gap BUN Creatinine Estimated GFR/1.73 m2 BUN/Creatinine Ratio Glucose Calculated Osmolality Calcium Total Bilirubin AST ALT Alkaline Phosphatase Troponin T 0.081 Total Protein Albumin Globulin Albumin/Globulin Ratio Orders Category Date Time Status FALL Precautions NOW Care 11/25/18 19:58 Active CBC WITH ELECTRONIC DIFF [HEME] Stat Lab 11/25/18 21:07 Completed COMPREHENSIVE METABOLIC PANEL [CHEM] Stat Lab 11/25/18 21:07 Completed PROTIME WITH INR [COAG] Stat Lab 11/25/18 21:07 Completed PTT [COAG] Stat Lab 11/25/18 21:07 Completed TROPONIN T Stat Lab 11/25/18 21:07 Completed Phenylephrine 1% Nose Drops [Chris-Synephrine 1% Nose Med 11/25/18 19:38 Discontinued Drops] 4 ml [place] NOW ONE EKG [EKG] Stat Ther 11/25/18 19:48 Ordered Result Diagrams: 05/09/19 21:07 11/25/18 21:07 - REASSESSMENT Reassessment #1 Time Reassessed: 21:12 Status: unchanged (Rapid Rhino inserted, still has blood dripping) Reassessment #2 Time Reassessed: 22:13 Status: improving (bleeding stop, EKG and troponin unremarkable. will admit for observation) - EKG 1 Time of EKG reading by physician:: 20:10 EKG Read and Signed by:: Skyler Zavala EKG Interpretation (*Must complete 3 of following elements*): Abnormal Rate: 78 Rhythm: nsr with occ PVCs [place]: normal QRS: normal, PVC's (occ) VA Interval: normal ST Wave: normal - CONSULTS/PCP/HOSPITALIST Notification #1 *Consult/PCP/Hospitalist*: Dr. Sepulveda Time Discussed: 20:22 Consult Disposition: Admit (Admit for observation and if nose bleed continue call again. will see in the morning) #2 Consult: Dr. Adames Time Discussed: 22:12 Consult Disposition: Admit (Hx, PE and patient care discussed, accepted.) Procedures - ENT PROCEDURES Epistaxis Management: Right Nasal Rocket Insertion: Right, Anterior, Posterior (anterior/posterior nasal rocket, soaked in saline/afrin solution placed without difficulty in right nare) Departure - Departure Date of Disposition Decision: 11/25/18 Time of Disposition Decision: 20:23 DIAGNOSIS: Epistaxis, Lightheadedness Chest pain Qualifiers: Chest pain type: unspecified Qualified Code(s): R07.9 - Chest pain, unspecified Disposition: ADMITTED INPATIENT 09 Certified Medical Emergency: Emergent Condition: Stable Referrals and Follow-Ups: Gee Abdalla MD [Primary Care Provider] - - Critical Care Note This patient required my direct & personal management of CC.: No Attestation - Physician/ MARY ALICE Attestation Patient care was provided by Advanced Practice Provider:: No The physician spent face to face time with patient:: Yes Advanced Practice Provider documentation review:: Supervising physician onsite and consulted in the evaluation and care of this patient. The physician did have a face to face encounter with the patient. This chart was documented by the indicated scribe, (BanRamona padilla Scribe) and accurately reflects the services I performed and decisions made by me, Madeline You MD, as attested by the provider's signature.
[2018-11-26] MEDS: NORCO-10 PO PRN ×4 (00:20→12:46)
--- NOTE | 2018-11-26 00:47 | HISTORY AND PHYSICAL ---
PRIMARY CARE PHYSICIAN: Dr. Gee Abdalla REASON FOR ADMISSION: Protracted epistaxis. HISTORY OF PRESENT ILLNESS: Mr. João Turner is a 70-year-old male with past medical history of sleep apnea, COPD, hypertension, hyperlipidemia, coronary artery disease status post stents yesterday. He also has a history of multiple jaw surgeries. He states that about a week ago he developed epistaxis which was not severe but was persistent over the course of 2 days. He would get temporary relief by applying ice to his nose and compression. He saw Dr. Che, his senior bioinformatics specialist, who recommended Afrin, which seemed to work very well for him initially. He also told him to continue using a baby aspirin. The patient 2 weeks ago had stopped taking ibuprofen and Voltaren gel in anticipation for elective possible stent placement. Two days later, i.e. yesterday, he underwent stent placement and Plavix was added to the regimen. Later this evening he started bleeding profusely from his nose with clots and estimates about half a L of blood loss. He came to the ER, a rhino rocket was applied and hemostasis has been achieved at this point in time. He currently feels lightheaded, but denies any cardiorespiratory complaints. Transiently, he had some chest pain but EKG is normal. Troponin is mildly elevated at 0.08. REVIEW OF SYSTEMS: Twelve system review was done, positive findings per HPI. ALLERGIES: Morphine and Tylenol. HOME MEDICATION: Patient is on Afrin 2 sprays intranasally p.r.n., Norvasc 2.5 mg, aspirin 1 mg daily, famotidine 20 mg daily, [place] 1 tablet p.r.n., Lipitor 40 mg daily, Lopressor 25 mg daily, loratadine 10 mg a day, Plavix 75 mg daily. SURGICAL HISTORY: He has had tonsillectomy, hernia repair x3, pain pump insertion and subsequent removal, multiple jaw surgeries, sphenoid sinus tumor excision (and states he had epistaxis following that surgery), bilateral lower extremity surgery for gangrene infected cyst, and a stent placed yesterday. FAMILY HISTORY: Notable for heart disease in dad and brother. Brother of small cell lung cancer. SOCIAL HISTORY: Smokes cigars occasionally. 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 LABORATORY WORK: White count 7000, H and H 16 and 46, platelets 242,000 with normal differential. BUN 20, creatinine 0.9. AST 39, ALT 48, glucose 148. PTT is normal. PHYSICAL EXAMINATION: VITAL SIGNS: Blood pressure is 110/66, heart rate 80, respirations 18, temperature 97.8, saturation 96% on room air GENERAL: He is a middle-aged man who is not in acute distress. A and O x3. Normal mood and affect. HEENT: Head is normocephalic, atraumatic. Eyes, GREGOR, EOMI. He is anicteric, not pale. ENT shows that there is a rhino rocket in the right naris, blood-stained. Oropharyngeal shows no acute bleeding in his oropharynx. Old blood cakes noted. NECK: Supple. No JVD or carotid bruit. No thyromegaly. CHEST: Clear to auscultation. Good air entry both lung huynh. CARDIOVASCULAR: First and 2nd heart sounds heard. No gallops, rubs. Rhythm is regular. ABDOMEN: Full, soft, nontender. No mass or megaly. Bowel sounds are normal. RECTAL: Deferred at this time. EXTREMITIES: Decreased distal pulse volume in all extremities. Slightly tachycardic. Rhythm is regular. No edema, clubbing, or cyanosis. NEUROLOGICAL: No gross focal deficits. SKIN: Intact. No breakdown, lesions, erythema. MUSCULOSKELETAL: Grossly normal. ASSESSMENT: 1. Epistaxis secondary to dual antiplatelet therapy and possible altered anatomy of the nasopharynx from prior surgical intervention. 2. Coronary artery disease status post stent. 3. Hypertension. 4. Hyperlipidemia. 5. Reactive leukocytosis. 6. Mild hemorrhagic anemia. PLAN: Patient aggressively rehydrated with crystalloid replacement. Follow H and H closely. Transfuse if hematocrit less than 25. Because of potential risk of in-stent thrombosis with its attendant complications is worse than the potential of rebleeding, I have elected to continue Plavix and aspirin until he is seen by the senior bioinformatics specialist, Dr. Che, and Dr. Sepulveda, ENT physician. This is primarily because the stent was placed yesterday and the risk for in-stent thrombosis is high in this subgroup of patients. I started patient on prophylactic antibiotics to decrease the potential but small risk of toxic shock syndrome from rhino rocket placement. My reason for doing this even though the data is not very strong, is because the patient had extensive sinus surgery which may further increase the risk of any potential infection in the nasopharynx area. Will continue with antibiotics and statins. Withhold antihypertensive if systolic blood pressure is less than 130. Do serial H and H's and troponin's, and address any issues as they arise. cc: MD Gee Singletary MD
[2018-11-26] MEDS: AFRIN NASAL SPRAY NAS SCH ×3 (00:51→21:08)
[2018-11-26] MEDS: NS 1,000 ML IV SCH ×5 (00:52→22:26)
[2018-11-26 00:54] LABS: HEMATOCRIT 43.2 % (42.0-52.0); HEMOGLOBIN 14.6 g/dL (14.0-18.0); MCH 32.2 PG (27-31); MCHC 33.8 g/dL (33-37); MCV 95.2 FL (81-99); RBC 4.54 XMIL (4.7-6.1); RDW 12.6 % (11.5-14.5); WBC 13.54 X1000 (4.8-10.8)
--- NOTE | 2018-11-26 06:54 | EKG Report ---
Test Performed on : 11/25/2018 8:07:19 PM Test Reason : dizziness Blood Pressure : / mmHG Vent. Rate : 078 BPM Atrial Rate : 078 BPM P-R Int : 152 ms QRS Dur : 094 ms QT Int : 392 ms P-R-T Axes : 045 061 077 degrees QTc Int : 446 ms Sinus rhythm. with occasional premature ventricular complexes. Otherwise normal ECG When compared with ECG of 20-MAY-2018 13:29, premature ventricular complexes. are now present QT has lengthened Unconfirmed Result
[2018-11-26 07:25] LABS: HEMATOCRIT 43.5 % (42.0-52.0); HEMOGLOBIN 14.7 g/dL (14.0-18.0); MCHC 33.8 g/dL (33-37); MCV 94.6 FL (81-99); MPV 9.1 FL (7.4-10.4); RBC 4.6 XMIL (4.7-6.1); RDW 12.5 % (11.5-14.5); WBC 12.84 X1000 (4.8-10.8)
[2018-11-26 07:38] LABS: INR 0.92; PROTIME 13.1 Seconds (11.0-16.0)
[2018-11-26 07:44] LABS: AGAP 11; BUN 15 mg/dL (8-22); CHLORIDE 105 mmol/L (98-107); COSMO 280; CREATININE 0.7 mg/dL (0.7-1.2); ESTIMATED GFR > 60; GLUCOSE 122 mg/dL (70-104); POTASSIUM 4.7 mmol/L (3.5-5.1); SODIUM 139 mmol/L (136-145); TCO2 23 mmol/L (25-35)
[2018-11-26] MEDS: ASPIRIN EC PO SCH ×2 (08:17→08:21)
[2018-11-26] MEDS: PEPCID PO SCH (08:17)
[2018-11-26] MEDS: LIPITOR PO SCH ×3 (08:17→08:22)
[2018-11-26] MEDS: PLAVIX PO SCH ×2 (08:17→08:24)
[2018-11-26] MEDS: LOPRESSOR PO SCH ×2 (08:17→08:23)
[2018-11-26] MEDS: NORVASC PO SCH ×2 (08:17→08:23)
[2018-11-26] MEDS ORDERED: XYLOCAINE-MPF 2% ONE (09:48)
[2018-11-26] MEDS ORDERED: DIPRIVAN 1% ONE (09:48)
[2018-11-26] MEDS ORDERED: QUELICIN (DOSE) ONE (09:48)
[2018-11-26] MEDS ORDERED: ROBINUL ONE (09:48)
[2018-11-26] MEDS ORDERED: FENTANYL ONE (10:00)
[2018-11-26] MEDS ORDERED: AMIDATE ONE (10:00)
--- NOTE | 2018-11-26 10:13 | CONSULTATION ---
DATE OF CONSULTATION: 11/26/2018 HISTORY: A 70-year-old 2 days status post cardiac stent placement began Plavix. He also had been on Toprol, which he has had continued. One week ago, he developed mild epistaxis right intermittent. Then, last night had marked epistaxis on the right. Eventually, he arrived in the emergency room with a rhino rocket placed with partial control. He is 20 year status post removal of benign sphenoid sinus lesion and has had multiple jaw or TMJ surgeries. PAST MEDICAL HISTORY: Reviewed. SOCIAL HISTORY: Reviewed. FAMILY HISTORY: Reviewed. REVIEW OF SYSTEMS: As noted. PHYSICAL EXAMINATION: Constitutional: Well-developed, well-nourished white male in no acute distress. HEENT: Face with no lesions. Nose: External nose clear intranasal exam. Anterior pack rhino rocket in place on the right with bleeding around pack. Oral cavity pharynx more blood in oropharynx. Patient is status post palatoplasty. No lesions. Tongue benign. Neck: No adenopathy. IMPRESSION: Right epistaxis 2 days status post stent placement. The patient is on Plavix and Toprol. PLAN: I had discussed with Dr. Che. Discussed stopping Plavix. Discussed leaving current packing in place. Discussed removal of pack with cauterization for better control of persistent epistaxis which we decided to proceed with. cc: Morris Sepulveda MD
[2018-11-26] MEDS ORDERED: DECADRON ONE (10:19)
[2018-11-26] MEDS ORDERED: ZOFRAN ONE (10:19)
[2018-11-26] MEDS ORDERED: EPHEDRINE ONE (10:20)
--- NOTE | 2018-11-26 10:24 | CARDIOLOGY CONSULTATION ---
DATE: 11/26/2018 HISTORY OF PRESENT ILLNESS: Cardiology was consulted for a protracted epistaxis with recent stent placement. Dr. Sepulveda is planning to take him to have cauterization off of his nose given his significant epistaxis. The patient underwent a stent placement recently. He has also had multiple jaw surgeries. Comes with complaints of having bleeding profusely from the nose and clots as well. He came to the emergency room. A Rhinorocket was applied. Hemostats has been achieved, however he continues to ooze. From a cardiac standpoint, the patient felt lightheaded when he had these symptoms. Had some mild chest discomfort. Electrocardiogram was normal. Troponin was unremarkable. There are no palpitations. There is no loi syncope. REVIEW OF SYSTEM: A 14-point review of systems was done.GI: There is no history of nausea, vomiting, diarrhea. There is no history of hematemesis or melena. Central nervous system: No focal weakness to suggest a CVA or TIA. Genitourinary: There is no dysuria or hematuria. PAST MEDICAL HISTORY: 1. Cardiac catheterization on 11/24/2018. The patient had abnormal CT angiogram, has an occluded right coronary artery which has collateralized with significant obtuse marginal artery stenosis. Underwent PCI of OM 2 with a drug-eluting stent. Dual antiplatelet therapy is recommended. Left main 25%, distal LAD 40%, mid left circumflex significant 85% proximal stenosis, RCA chronically occluded with [id number] collaterals. 2. Peripheral vascular disease bilateral with status post right carotid endarterectomy 02/06/2017. 3. Hypertension. 4. Hyperlipidemia. 5. Ex-smoker. 6. Hernia repair. 7. Pain pump insertion, subsequent removal. 8. Multiple jaw surgeries. 9. 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 10. Bilateral extremity surgery for gangrene infected cyst. 11. Peripheral vascular disease with stent placement. HOME MEDICATIONS: 1. Norvasc 2.5 mg a day. 2. Aspirin 81 mg a day. 3. Plavix 75 mg a day. 4. Lipitor 40 mg a day. 5. Lopressor 25 mg daily. 6. Famotidine 20 mg a day. SOCIAL HISTORY: He smokes cigars occasionally. FAMILY HISTORY: Notable for heart disease in his brother and his father. PHYSICAL EXAMINATION: Vital Signs: Blood pressure 110/66. Cardiovascular: Normal jugular venous pressure. There is no thyromegaly. No carotid bruit. First and second heart sounds were heard. There is no S3-S4 gallop. Respiratory System: Normal air entry. There are no crepitations or rhonchi. Abdomen: Soft, nontender. There was no guarding or rigidity. Bowel sounds were heard. Central nervous system: Alert and oriented. Moving moving all 4 extremities. Extremities: Revealed no pedal edema. HEENT: Pupils were equal and reacting to light. The patient had packing in his nostril with Rhinorocket placement. ASSESSMENT AND PLAN: Mr. João Turner is a 70-year-old gentleman with history of peripheral vascular disease, hypertension, smoker who has known coronary artery disease, as well as had right carotid endarterectomy. Underwent a drug-eluting stent to the obtuse marginal artery and has significant coronary artery disease. Recommend aspirin and Plavix long-term or at least for a year. He has presented with severe epistaxis and Dr. Sepulveda is planning to do cauterization. I have discussed with Dr. Sepulveda. Would recommend proceeding with surgery as planned. I have not made any other changes to his medications. Would recommend continuing aspirin and Plavix. Thank you for the consult. We will follow hospital course. cc: Giorgio Che MD
[2018-11-26] MEDS ORDERED: NEO-SYNEPHRINE 1% NASAL SPRAY ONE (10:25)
[2018-11-26] MEDS: AUGMENTIN PO SCH ×2 (12:41→22:20)
--- NOTE | 2018-11-26 13:35 | OPERATIVE NOTE ---
PROCEDURE DATE: 11/26/2018 PREOPERATIVE DIAGNOSIS: Right epistaxis. POSTOPERATIVE DIAGNOSIS: Right epistaxis. PROCEDURE: Right endoscopic cauterization septum for epistaxis, right endoscopic nasal polypectomy, and right anterior posterior pack placement. ANESTHESIA: General. SURGEON: Morris Sepulveda MD. FINDINGS: Patient had generalized oozing from mucosal surfaces due to anticoagulant therapy. Additionally, had polyps at middle meatus and superior meatus on the right and status post ethmoidectomy. DESCRIPTION OF PROCEDURE: Patient was taken to the operating room, and placed in the supine position. General orotracheal anesthesia induced without difficulty. A rhino rocket was removed from the right nose, and the nose was decongested with Chris-Synephrine, and suctioned clear of old blood. There was noted to be polyposis in the middle meatus and superior meatus on the right. There was generalized oozing from mucosal surfaces from trauma from the pack, but also probably due to anticoagulant therapy. We debulked the polyps endoscopically to have room to examine the nose. No specific single bleeding site was noted despite extensive examination with the endoscope. Therefore, Surgicel was placed along mucosal surfaces laterally and superiorly, particularly in the middle meatus and superior meatus beds. Two small Merocel sponges placed inferior to this to hold this in position. Inspection of the nose revealed no further bleeding at this point. Prior to placing Merocel, we did cauterize the septum at 2 spots that had persistent oozing probably due to trauma. The stomach was suctioned, and the patient awakened, and sent to the recovery in good condition. cc: Morris Sepulveda MD
[2018-11-26 14:40] LABS: HEMATOCRIT 42.6 % (42.0-52.0); HEMOGLOBIN 14.3 g/dL (14.0-18.0); MCH 32.2 PG (27-31); MCHC 33.6 g/dL (33-37); MCV 95.9 FL (81-99); RBC 4.44 XMIL (4.7-6.1); RDW 12.5 % (11.5-14.5); WBC 14.58 X1000 (4.8-10.8)
--- NOTE | 2018-11-26 15:16 | PROGRESS NOTE ---
DATE: 11/26/2018 SUBJECTIVE: Seen after procedure. He is doing okay. No major complaints. OBJECTIVE: Vital Signs: Blood pressure is 168/87, heart rate 73, respiratory 16, temperature 97.9 degrees, 96% on room air. Cardiovascular: Regular rate and rhythm. Pulmonary: Bilateral breath sounds clear to auscultation. GI: Soft, nontender, nondistended. Bowel sounds are positive. LABORATORY DATA: White count 14, hemoglobin and hematocrit 14 and 42, platelets 209,000. Basic was normal. PROBLEM LIST: 1. Epistaxis related to nasal polyp and then dual anti-platelet therapy. We will continue to monitor hemoglobin and hematocrit. He has had definitive control with sclerotherapy and resection of polyp. ENT is following closely and believes we have achieved hemostasis. 2. Coronary artery disease with a recent stent. He had a stent about a week ago. Will maintain on aspirin and Plavix per Cardiology recommendations. 3. Hypertension is currently stable. Continue to follow very closely. DISPOSITION: Possible discharge in the next 24 hours pending his clinical status. cc: Raji Larios MD
[2018-11-26] MEDS: PERCOCET-10 PO PRN (17:16)
[2018-11-27] MEDS: PERCOCET-10 PO PRN ×4 (00:46→18:21)
[2018-11-27 07:17] LABS: BASO# 0.01 X1000 (0.0-0.2); BASO% 0.1 % (0.0-0.8); EOS# 0.02 X1000 (0.0-0.7); EOS% 0.1 % (0.0-10.0); HEMATOCRIT 41.9 % (42.0-52.0); HEMOGLOBIN 14.2 g/dL (14.0-18.0); IMM GRAN# 0.05 X1000 (0.0-0.04); IMM GRAN% 0.3 % (0.0-0.5); LYMPH# 2.39 X1000 (1.2-3.4); LYMPH% 15.2 % (20.5-51.1); MCHC 33.9 g/dL (33-37); MCV 94.4 FL (81-99); MONO# 1.35 X1000 (0.11-0.59); MONO% 8.6 % (1.7-9.3); MPV 8.9 FL (7.4-10.4); NEUT# 11.89 X1000 (1.4-6.5); NEUT% 75.7 % (42.2-75.2); PLT 229 X1000 (130-400); RBC 4.44 XMIL (4.7-6.1); RDW 12.5 % (11.5-14.5); WBC 15.71 X1000 (4.8-10.8)
[2018-11-27 07:52] LABS: AGAP 12; BUN 10 mg/dL (8-22); CALCIUM 9.1 mg/dL (8.8-10.2); CHLORIDE 108 mmol/L (98-107); COSMO 285; CREATININE 0.7 mg/dL (0.7-1.2); ESTIMATED GFR > 60; GLUCOSE 108 mg/dL (70-104); POTASSIUM 4.3 mmol/L (3.5-5.1); SODIUM 143 mmol/L (136-145); TCO2 23 mmol/L (25-35)
[2018-11-27] MEDS: NS 1,000 ML IV SCH (08:41)
[2018-11-27] MEDS: LIPITOR PO SCH (08:42)
[2018-11-27] MEDS: LOPRESSOR PO SCH (08:42)
[2018-11-27] MEDS: AFRIN NASAL SPRAY NAS SCH (08:45)
[2018-11-27] MEDS: PEPCID PO SCH (08:45)
[2018-11-27] MEDS: ASPIRIN EC PO SCH ×2 (08:45→12:05)
[2018-11-27] MEDS: NORVASC PO SCH (08:45)
[2018-11-27] MEDS: PLAVIX PO SCH (08:49)
--- NOTE | 2018-11-27 10:15 | PROGRESS NOTE ---
DATE: 11/27/2018 SUBJECTIVE: Postop day 1, status post endoscopic nasal polypectomy on right with cauterization for epistaxis and Surgicel, Merocele pack placement. The patient has had no bleeding. He has not had Plavix yesterday or today. He has no current complaints. OBJECTIVE: Merocele in position. No active bleeding. Oropharynx clear. No active bleeding. IMPRESSION: Satisfactory control of epistaxis, off Plavix for 2 days. PLAN: We will go ahead and restart his anticoagulant therapy this morning. The patient will follow up in the office with me on Thursday. We will follow while in the hospital and recheck tomorrow if he is still here. cc: Morris Sepulveda MD
[2018-11-27] MEDS: AUGMENTIN PO SCH ×2 (12:05→23:50)
[2018-11-27] MEDS ORDERED: NS 1,000 ML IV SCH ×2 (15:27→15:57)
--- NOTE | 2018-11-27 18:51 | PROGRESS NOTE ---
DATE: 11/27/2018 SUBJECTIVE: Patient has no major complaints. OBJECTIVE: Vital Signs: Blood pressure is 152/78, heart rate 72, respiratory rate 15, temperature 98.1, 99% on room air. Cardiovascular: Regular rate and rhythm. Pulmonary: Bilateral breath sounds, clear to auscultation. GI: Soft, nontender, nondistended. Bowel sounds are positive. LABORATORY DATA: White count 15, hemoglobin and hematocrit of 14 and 41, platelets 229. Basic was normal. PROBLEM LIST: 1. Epistaxis. He is on dual anti-platelet therapy. He seems to be better. No more bleeding. ENT, Dr. Sepulveda is following closely. Appreciate his urgent intervention. He has packing in place. He is having difficulty chewing because of sinus pressure and pain. He is on some medications for that, Percocet. He does not want any IV medications. They are too strong for him, specifically IV morphine. He feels like the IV Dilaudid was also too strong. He seems overall controlled. I will advance him to a full liquid diet and follow. 2. Coronary artery disease with a very recent stent within the last week. He is back on aspirin and Plavix. Cardiology has been following. 3. Hypertension. Is stable. DISPOSITION: I imagine if stable tomorrow, will be able to go home. cc: Raji Larios MD
[2018-11-28] MEDS: AFRIN NASAL SPRAY NAS SCH ×3 (00:19→21:19)
[2018-11-28] MEDS: PERCOCET-10 PO PRN ×3 (00:20→14:29)
[2018-11-28 07:05] LABS: BASO# 0.03 X1000 (0.0-0.2); BASO% 0.2 % (0.0-0.8); EOS% 0.7 % (0.0-10.0); HEMATOCRIT 42.8 % (42.0-52.0); HEMOGLOBIN 14.6 g/dL (14.0-18.0); IMM GRAN# 0.04 X1000 (0.0-0.04); IMM GRAN% 0.3 % (0.0-0.5); LYMPH# 2.45 X1000 (1.2-3.4); LYMPH% 15.9 % (20.5-51.1); MCH 32.2 PG (27-31); MCHC 34.1 g/dL (33-37); MCV 94.5 FL (81-99); MONO# 1.39 X1000 (0.11-0.59); MPV 8.9 FL (7.4-10.4); NEUT# 11.36 X1000 (1.4-6.5); NEUT% 73.9 % (42.2-75.2); PLT 225 X1000 (130-400); RBC 4.53 XMIL (4.7-6.1); RDW 12.5 % (11.5-14.5); WBC 15.37 X1000 (4.8-10.8)
[2018-11-28 07:25] LABS: AGAP 11; BUN 8 mg/dL (8-22); CALCIUM 9.3 mg/dL (8.8-10.2); CHLORIDE 101 mmol/L (98-107); COSMO 272; CREATININE 0.8 mg/dL (0.7-1.2); ESTIMATED GFR > 60; GLUCOSE 135 mg/dL (70-104); POTASSIUM 4.4 mmol/L (3.5-5.1); SODIUM 136 mmol/L (136-145); TCO2 24 mmol/L (25-35)
[2018-11-28] MEDS: PEPCID PO SCH (09:35)
[2018-11-28] MEDS: LIPITOR PO SCH (09:35)
[2018-11-28] MEDS: PLAVIX PO SCH (09:35)
[2018-11-28] MEDS: NORVASC PO SCH (09:35)
[2018-11-28] MEDS: ASPIRIN EC PO SCH (09:35)
[2018-11-28] MEDS: LOPRESSOR PO SCH (09:35)
[2018-11-28] MEDS: AUGMENTIN PO SCH (11:17)
--- NOTE | 2018-11-28 13:22 | PROGRESS NOTE ---
DATE: 11/28/2018 SUBJECTIVE: No further bleeding. Some pressure in sinuses. He has been up some without bleeding. He is back on Plavix. OBJECTIVE: There are still packs in place. No active bleeding. PLAN: Agree with discharge. Follow up in my office in 2 days. We will remove Merocele packs at that time. He understands to call me if any problems before then. cc: Morris Sepulveda MD
[2018-11-28] MEDS ORDERED: TORADOL IV ONE (15:10)
[2018-11-28] MEDS: ROCEPHIN 1 GM in NS 50 ML IV SCH (15:46)
--- NOTE | 2018-11-28 15:54 | PROGRESS NOTE ---
DATE: 11/28/2018 SUBJECTIVE: The patient just feels miserable. Headache is severe. He just cannot get his symptoms under control. He seems a little bit more sedated than he did before. OBJECTIVE: Vital Signs: Blood pressure is 131/65, heart rate 68, respiratory rate of 16, temperature 98.1 degrees. Cardiovascular: Regular rate and rhythm. Pulmonary: Bilateral breath sounds. Clear to auscultation. GI: Soft, nontender, nondistended. Bowel sounds are positive. PROBLEM LIST: 1. Epistaxis. He is on dual anti-platelet therapy. Seems to be doing okay on Percocet. No more bleeding, and I think hemoglobin and hematocrit actually have been stable for 3 days. He is just having a lot of discomfort from sinus pressure. We will work on pain control. 2. Coronary artery disease with recent stent. He is on aspirin and Plavix. Seems to be stable. 3. Hypertension. DISPOSITION: Pending his clinical status. I think I am going to try and get his headache under control. He should be able to go home. I am going to put him on Rocephin just to see if that may help a little bit. cc: Raji Larios MD
[2018-11-29] MEDS: DILAUDID IV PRN ×3 (00:32→20:25)
[2018-11-29] MEDS: PERCOCET-10 PO PRN ×3 (02:35→21:28)
[2018-11-29 07:17] LABS: BASO# 0.04 X1000 (0.0-0.2); BASO% 0.3 % (0.0-0.8); EOS# 0.17 X1000 (0.0-0.7); EOS% 1.1 % (0.0-10.0); HEMATOCRIT 43.9 % (42.0-52.0); HEMOGLOBIN 14.8 g/dL (14.0-18.0); IMM GRAN# 0.05 X1000 (0.0-0.04); IMM GRAN% 0.3 % (0.0-0.5); LYMPH% 19.4 % (20.5-51.1); MCH 31.9 PG (27-31); MCHC 33.7 g/dL (33-37); MCV 94.6 FL (81-99); MONO# 1.55 X1000 (0.11-0.59); MONO% 10.4 % (1.7-9.3); NEUT# 10.23 X1000 (1.4-6.5); NEUT% 68.5 % (42.2-75.2); PLT 251 X1000 (130-400); RBC 4.64 XMIL (4.7-6.1); RDW 12.6 % (11.5-14.5); WBC 14.94 X1000 (4.8-10.8)
[2018-11-29] MEDS: LOPRESSOR PO SCH (08:59)
[2018-11-29] MEDS: PLAVIX PO SCH (08:59)
[2018-11-29] MEDS: LIPITOR PO SCH (08:59)
[2018-11-29] MEDS: ASPIRIN EC PO SCH (08:59)
[2018-11-29] MEDS: AFRIN NASAL SPRAY NAS SCH ×2 (09:00→20:24)
[2018-11-29] MEDS: NORVASC PO SCH (09:00)
[2018-11-29] MEDS: PEPCID PO SCH (09:00)
[2018-11-29] MEDS ORDERED: NS 1,000 ML IV ONE (11:17)
[2018-11-29] MEDS ORDERED: G.I. COCKTAIL PO PRN (11:18)
--- NOTE | 2018-11-29 11:43 | PROGRESS NOTE ---
DATE: 11/29/2018 SUBJECTIVE: The patient has no complaints. OBJECTIVE: Vitals: Blood pressure 169/71, heart rate 82, respiratory rate 17, temperature 98.7 degrees, 97% on room air. Cardiovascular: Regular rate and rhythm. Pulmonary: Bilateral breath sounds clear to auscultation. GI: Soft, nontender, nondistended. Bowel sounds are positive. LABORATORY: White count 14, hemoglobin and hematocrit 14 and 43, platelets 251,000. PROBLEM LIST: 1. Epistaxis. The patient is on dual anti-platelet therapy. His hemoglobin and hematocrit is stable, but clinically he is not eating. He has severe pain. He just cannot get comfortable. I am just not sure what else to offer him. Now he will not eat because he says it is just too painful to swallow, which I am not sure what all we can do from that standpoint with his recent CAD, but in any case, we will see what Dr. Sepulveda suggests. I do not know if we need to do any other reimaging, but he is not bleeding and he has packing and irritation and I just cannot get him stabilized. 2. Dysphagia, which may be just related to multiple issues. I am going to put him on some fluids, order some viscous lidocaine, get a Gastroenterology opinion, although I anticipate they will not be eager to do any instrumentation since he is on aspirin and Plavix and just had a stent last week. I ordered an upper GI series. They can decide to do that tomorrow or if they are willing to evaluate for endoscopy I will let them decide about that. Dr. Harper has been consulted. DISPOSITION: Home when he can tolerate p.o. Right now that is not the case and he seems to be getting weaker unfortunately, so we will continue to follow closely. cc: Raji Larios MD
[2018-11-29] MEDS: PROTONIX IV SCH ×2 (15:13→23:22)
[2018-11-29] MEDS: MIRALAX PO SCH (15:13)
[2018-11-29] MEDS: SODIUM CHLORIDE 0.9% INJ SCH (15:13)
[2018-11-29] MEDS: ROCEPHIN 1 GM in NS 50 ML IV SCH (15:18)
--- NOTE | 2018-11-29 15:35 | GASTROENTEROLOGY CONSULTATION ---
DATE: 11/29/2018 ATTENDING PHYSICIAN: Dr. Larios. PRIMARY CARE PHYSICIAN: Dr. Gee Abdalla. REASON FOR CONSULTATION: Dysphagia. HISTORY OF PRESENT ILLNESS: Mr. Turner is 70-year-old male who was admitted on 11/25/2018 for protracted epistaxis. He was seen by Dr. Sepulveda. He had a packing of the right nostril. He had a recent stent placement on 11/24/2018 at [facility] for coronary disease. He was started on aspirin and Plavix. Along with that, he also has a history of arthritis and was taking ibuprofen until about 2 weeks ago. His epistaxis has stopped or improved since the packing done by Dr. Sepulveda, but over the last few days he has been noted to have trouble swallowing. He complains of food getting stuck in the lower throat. He continues on aspirin and Plavix. He denies having an EGD or colonoscopy in the past. PAST MEDICAL HISTORY: 1. Coronary artery disease, status post stent placement on 11/24/2018, on aspirin Plavix. 2. Arthritis, on ibuprofen. 3. Epistaxis, status post packing. 4. Hyperlipidemia. 5. Hypertension. 6. Reflux disease, on famotidine at home. 7. Nasal allergy. PAST SURGICAL HISTORY: Tonsillectomy, hernia repair x3, pain pump insertion and subsequent removal, multiple jaw surgeries, sphenoid sinus tumor excision, bilateral lower extremity surgery for gangrene and infected cysts, stent placement on 11/24/2018 at [facility], coronary artery stent. FAMILY HISTORY: Notable for heart disease in dad and brother. Brother of small cell lung cancer. SOCIAL HISTORY: He smokes cigars occasionally. 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 He drinks occasionally. Denies any history of illicit drug abuse. ALLERGIES: Morphine and acetaminophen. MEDICATIONS IN THE HOSPITAL: Oxymetazoline nasal spray twice daily, Tylenol, Norvasc, aspirin, Lipitor, Plavix, Dilaudid, lidocaine/ magnesium hydroxide (GI cocktail) every 6 hours as needed, metoprolol, normal saline 100 mL/hr, Zofran, oxycodone/acetaminophen, Protonix b.i.d., ceftriaxone, ketorolac. DIET: He is currently on full liquid diet. He is also on Ensure with each meal daily. REVIEW OF SYSTEMS: Denies any fevers, rigors, chills, chest pain, shortness of breath. He does complain of discomfort in the right nostril. Does complain of a headache in the forehead and nasal congestion. He complains of trouble swallowing as described above. He denies any nausea or vomiting. He feels constipated. He has a history of chronic arthritis. He denies any neurologic complaints. He has not had a bowel movement since being in the hospital. PHYSICAL EXAMINATION: Vital signs: Temperature of 98.7 degrees, pulse rate of 82, respiratory rate of 17, blood pressure 116/71, saturating 97% on room air. Body weight of 139 pounds 5 ounces, BMI of 18.1 kg/m2. General Appearance: Moderately built, moderately nourished, lying in bed, in no acute distress. HEENT: No pallor. No icterus. Pupils equal, reactive to light. He has nasal packing noted in the right nostril. Neck: Supple. Abdomen: Soft, nontender, nondistended. No guarding or rebound. Extremities: No cyanosis, clubbing. Neurologic: Alert, awake, oriented x3. LABS: Hemoglobin and hematocrit are 14.8 and 43.9, white count of 14.94, platelet count of 251,000. Sodium 132, potassium 4.4, chloride 101, bicarb 22, anion gap 11, BUN of 8, creatinine 0.8, glucose of 135, calcium 9.3, total bilirubin is 0.31, AST 39, ALT 48, alkaline phosphatase 101, total protein is 8.2, albumin of 5. Last op note done by Dr. Sepulveda showed generalized oozing mucosal surfaces due to anticoagulation therapy, polyps noted in the middle meatus and superior meatus on the right, and status post ethmoidectomy and right anterior/posterior pack placement. IMPRESSION AND PLAN: 1. Epistaxis. This is being monitored by the primary care team and Dr. Sepulveda. 2. Coronary artery disease. Patient is on aspirin and Plavix. He had a stent placed on 11/24/[address] [facility]. Che is following. 3. History of arthritis. Patient was taking ibuprofen at home so I recommended him to stop using other NSAIDs like ibuprofen for now. 4. Dysphagia. He has been ordered an upper GI barium swallow for tomorrow. We will follow the results. We will switch him to Protonix twice daily. We will discontinue famotidine. Will decide about endoscopy based on the barium study. His risk of bleeding associated with any kind of endoscopic dilation is higher as the patient is on aspirin and Plavix. We will continue a full liquid diet. 5. Constipation. We will start him on Dulcolax 10 mg ND QHS and MiraLAX 17g QD and evaluate the response. 6. The above plan was discussed with the patient and all questions were answered. I also spoke with Dr. Larios and all questions were answered. Please call us with any further questions. cc: MD Gee Davis MD Alexis R. Penot, MD MTDD
[2018-11-29] MEDS: DULCOLAX PR SCH ×2 (20:29→20:33)
[2018-11-30] MEDS: DILAUDID IV PRN ×2 (03:20→09:35)
[2018-11-30] MEDS: PERCOCET-10 PO PRN ×2 (04:45→11:03)
[2018-11-30 07:14] LABS: BASO# 0.04 X1000 (0.0-0.2); BASO% 0.3 % (0.0-0.8); EOS# 0.24 X1000 (0.0-0.7); EOS% 1.7 % (0.0-10.0); HEMATOCRIT 41.3 % (42.0-52.0); IMM GRAN# 0.03 X1000 (0.0-0.04); IMM GRAN% 0.2 % (0.0-0.5); LYMPH# 2.93 X1000 (1.2-3.4); LYMPH% 20.7 % (20.5-51.1); MCH 32.1 PG (27-31); MCHC 33.9 g/dL (33-37); MCV 94.7 FL (81-99); MONO# 1.33 X1000 (0.11-0.59); MONO% 9.4 % (1.7-9.3); MPV 9.1 FL (7.4-10.4); NEUT# 9.56 X1000 (1.4-6.5); NEUT% 67.7 % (42.2-75.2); PLT 275 X1000 (130-400); RBC 4.36 XMIL (4.7-6.1); RDW 12.5 % (11.5-14.5); WBC 14.13 X1000 (4.8-10.8)
[2018-11-30 07:37] LABS: AGAP 10; ALB/GLOB RATIO 1.1; ALBUMIN 3.8 g/dL (3.5-5.0); ALKALINE PHOSPHATASE 100 U/L (32-122); BUN 11 mg/dL (8-22); CALCIUM 9.4 mg/dL (8.8-10.2); CHLORIDE 101 mmol/L (98-107); COSMO 275; CREATININE 0.8 mg/dL (0.7-1.2); ESTIMATED GFR > 60; GLUCOSE 122 mg/dL (70-104); GOT 22 U/L (10-34); GPT 36 U/L (10-44); POTASSIUM 4.3 mmol/L (3.5-5.1); SODIUM 137 mmol/L (136-145); TCO2 26 mmol/L (25-35); TOTAL BILIRUBIN 0.48 mg/dL (0.20-1.00); TOTAL PROTEIN 7.3 g/dL (6.3-8.3)
[2018-11-30] MEDS: MIRALAX PO SCH (09:23)
[2018-11-30] MEDS: NORVASC PO SCH (09:25)
[2018-11-30] MEDS: LIPITOR PO SCH (09:25)
[2018-11-30] MEDS: LOPRESSOR PO SCH (09:25)
[2018-11-30] MEDS: ASPIRIN EC PO SCH (09:25)
[2018-11-30] MEDS: PLAVIX PO SCH (09:25)
[2018-11-30] MEDS: AFRIN NASAL SPRAY NAS SCH (09:25)
--- NOTE | 2018-11-30 10:38 | Diag Imaging Result Doc PS360 ---
EXAM: GI SERIES WITH BA SWALLOW 11/30/2018 HISTORY: dysphagia TECHNIQUE: Air contrast barium swallow, 27 images, two minutes 59 seconds fluoroscopy time, dosage 1316.5 cGy. COMMENT: There is a small sliding hiatal hernia. No reflux was demonstrated during the examination. The upper esophagus is somewhat patulous in appearance. The study was somewhat limited due to the patient's clinical condition, however there appear to be some filling defects in the hypopharynx on the right side which are seen in the at times in the area of the right piriform sinus and on some of the images in the upper thoracic esophagus. The possibility of a mobile polypoid filling defect cannot be excluded, although the finding may be related to mucus or even blood clots, as the patient has recently experienced epistaxis. Further evaluation with direct visualization may be desirable. There is no evidence of mucosal ulceration or stricture. IMPRESSION: Questionable filling defects in the upper esophagus and hypopharynx. Hiatal hernia. Electronically signed by Bonilla Gaitan 11/30/2018 10:36 AM
[2018-11-30 10:59] VITALS: BP 121/53
[2018-11-30] MEDS: SODIUM CHLORIDE 0.9% INJ SCH (11:05)
[2018-11-30] MEDS: PROTONIX IV SCH (11:05)
--- NOTE | 2018-11-30 22:20 | PROVIDER PROGRESS NOTE ---
Progress Note SUBJECTIVE: No acute overnight events. Afebrile. No N/V, CP, SOB. He just completed esophagram at the time of interview. OBJECTIVE: Last Vital Signs Temp 97.6 F 11/30/18 09:37 Pulse 58 L 11/30/18 10:58 Resp 20 11/30/18 10:58 BP 121/53 11/30/18 10:58 Pulse Ox 97 11/30/18 09:37 Height 6 ft 1.5 in Weight 139 lb 5 oz GEN: awake, alert, NAD HEENT: anicteric, packing in nare, EOMI NECK: supple, no JVD PULM: CTAB, no wheezing CV: RRR, no murmurs ABD: soft NT/ND, NABS EXT: no cce NEURO: nonfocal LABS: 11/30/18 06:30 WBC 14.13 H Hgb 14.0 Plt Count 275 EXAM: GI SERIES WITH BA SWALLOW 11/30/2018 TECHNIQUE: Air contrast barium swallow, 27 images, two minutes 59 seconds fluoroscopy time, dosage 1316.5 cGy. COMMENT: There is a small sliding hiatal hernia. No reflux was demonstrated during the examination. The upper esophagus is somewhat patulous in appearance. The study was somewhat limited due to the patient's clinical condition, however there appear to be some filling defects in the hypopharynx on the right side which are seen in the at times in the area of the right piriform sinus and on some of the images in the upper thoracic esophagus. The possibility of a mobile polypoid filling defect cannot be excluded, although the finding may be related to mucus or even blood clots, as the patient has recently experienced epistaxis. Further evaluation with direct visualization may be desirable. There is no evidence of mucosal ulceration or stricture. IMPRESSION: Questionable filling defects in the upper esophagus and hypopharynx. Hiatal hernia. A/P: Mr. Turner is a 70 year old man with CAD on aspirin and plavix who presented with epistaxis and complained of dysphagia. Esophagram notable for hiatal hernia and likely blood clots in the hypopharynx without obvious esophageal strictures or lesions. Patient was discharged today with stable hgb and was able to tolerate oral intake prior to discharged. He will need diagnostic EGD should he continue to have dysphagia after his epistaxis resolves.
--- NOTE | 2018-12-25 20:02 | DISCHARGE SUMMARY ---
ADMISSION DATE: 11/25/2018 DISCHARGE DATE: 11/30/2018 FINAL DISCHARGE DIAGNOSES: 1. Epistaxis. 2. Dysphagia. 3. Coronary artery disease. 4. Hypertension. 5. Hyperlipidemia. CONSULTATIONS: 1. ENT consultation with Dr. Sepulveda. 2. GI consultation with Dr. Harper. PROCEDURES: Right endoscopic cauterization of the septum for epistaxis and right endoscopic nasal polypectomy with right anterior posterior pack placement. HOSPITAL COURSE: Mr. Turner is a 70-year-old male, with a history of coronary artery disease with recent stent placement who presented to the ER with recurrent epistaxis. The patient was admitted to the hospitalist service and ENT was consulted. The patient was maintained on his antiplatelet regimen and the patient was taken to the OR for a right endoscopic cauterization of the septum for epistaxis as well as a right nasal polypectomy. The patient did well following the procedure, with no further episodes of bleeding. GI was consulted due to the patient's complaints of dysphagia. A barium swallow was done that was unremarkable. The patient continued to improve clinically and was cleared for discharge home on November 30. DISCHARGE MEDICATIONS: 1. Aspirin 81 mg p.o. daily. 2. Plavix 75 mg p.o. daily. 3. Norvasc 2.5 mg p.o. daily. 4. Lactobacillus 1 tab oral twice a day. 5. Augmentin 875/125 one tab oral twice a day. 6. Loratadine 10 mg p.o. daily. 7. Lopressor 25 mg p.o. daily. 8. Percocet 10/325 one tab oral every 4 hours p.r.n. for pain. 9. MiraLAX 17 g oral daily p.r.n. for constipation. DISCHARGE DIET: Low-sodium, low-cholesterol diet. ACTIVITY: As tolerated. 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 The patient will also follow up with Dr. Sepulveda in the office as scheduled. cc: Teri Rodriguez MD
== END 2018-11-30 14:22 | disposition home or self-care (01) | DRG 813 ==
LOC: ED 18:42 → 3N 23:04 → SUATTDRO 23:04 → INTOOBSV 23:04 → OBSVTOIN 23:04
PROVIDERS: ATTEND Internal Medicine
CPT/HCPCS: 74246; 80048; 80053; 80076; 84484; 85025; 85027; 85610; 85730; 88304; 88313; 93005; 96360; 99282; 99284; A9270; C9113; J0330; J0696; J1100; J1170; J1885; J2405; J3010; J7030; S0164